=== PATIENT | female | born 1960 | race Caucasian/White ===

== ENCOUNTER 2023-04-12 01:31 | Day surgery (SDC) | payer BC, SELFPAY ==
[2023-04-05 12:33] VITALS: BMI 37.5
--- NOTE | 2023-04-05 12:37 | PC.NURSE ---
Report to the Outpatient Waiting Room, entrance under the green pavilion located off [facility], at time 0715 on date 04/12/23. Planned Procedure Time: 0915. Time changes happen often and if your time is changed the preop area will call you the afternoon before. - You and your visitor will be asked to self-screen and do not enter if you have any COVID symptoms. - A mask is optional within the hospital at this time. Patients may have clear liquids (water, carbonated beverages, clear teas, apple juice) until 3 hours prior to surgery with a maximum of 20 ounces. - No food from midnight until time of surgery Take the following medications with a SIP of water the morning of surgery: NONE DO NOT STOP ANY OF YOUR OTHER PRESCRIPTION MEDICATIONS PRIOR TO SURGERY ?EXCEPT THE FOLLOWING Medications to discontinue per physician: VITAMINS/SUPPLEMENTS Date to take last dose: 04/08/23 Please no make-up, nail swedish, hairspray, perfume, deodorant, or body powder the day of surgery. No jewelry (including any body piercings) or valuables the day of surgery, leave them at home. Please take a shower or bath the night before, or the morning of, surgery with an antibacterial soap. Wear comfortable, loose fitting clothing. - Jewelry must be removed prior to entering the operating room. Rings and piercings that are not removed may be cut off. - The hospital will not accept responsibility for valuables. - Please leave all valuables, including medications, at home the day of surgery. If you are going home after surgery, a licensed commercial driver's license driver must drive you home. - NO public transportation without another adult if you receive anesthesia. - We recommend that an adult stay with you for 24 hours following discharge. - We also recommend that you do not drive, make important decision, drink alcoholic beverages, or take any drugs that were not prescribed by your health care provider for at least 24 hours after your discharge time. Follow any additional instructions given to you from your surgeon. If you or anyone in your household have experienced Covid symptoms in the past week, please notify your surgeon or the nurse liaison at the phone number below for possible testing. Telephone instructions given to PT - CEZAR COOPER and asked if any additional questions and then verbalized understanding. Patient advised to call surgeon office or pre surgery nurse liaison [phone] if any additional questions.
--- NOTE | 2023-04-12 07:30 | WPDHPUPDATE1 ---
History and Physical Update Update Date/Time: 04/12/23 07:30 History and Physical has been reviewed, including an updated exam of the patient. There are NO changes in the patient's condition. Risks, benefits, and alternatives have been discussed and questions answered. Patient agrees to proceed with procedure.
--- NOTE | 2023-04-12 07:31 | P.HP_ITS ---
History of Present Illness History of Present Illness Consent: Risks, benefits, and alternatives have been discussed and questions answered. Patient agrees to proceed with procedure. Chief complaint: thickend endomet Narrative: Alyssia Dinh is a 62 year old female who underwent pelvic ultrasound for pain revealed an incidental finding of thickened endometrium with possibly cystic change. Patient denies vaginal bleeding. It was recommended to proceed with workup including hysteroscopy D&C. Risks of infection, bleeding, perforation, and possible pathology are reviewed. Patient voices understanding and agrees to proceed. Review of Systems Review of Systems: not repeated day of surgery; patient states no changes in status FOR[facility]LY [facility], [facility] Past Medical History Medical History (Updated 04/12/23 @ 07:36 by Flori Landin MD) GERD (gastroesophageal reflux disease) (normal spontaneous vaginal delivery) Surgical History Surgical History (Updated 04/12/23 @ 07:36 by Flori Landin MD) History of cryosurgery cervical 1990 History of D&C for spontaneous in 1989 History of laparoscopy BSO Social History Social History Smoking status: Never smoker Alcohol intake: current Drinks per week: 4 Substance use: never Substance use type: does not use Living arrangements: with family Spiritual care concerns: No Meds Home Medications and Allergies Home Medications Medication Instructions Recorded Confirmed Type calcium carbonate 600 mg calcium 600 mg PO DAILY 04/05/23 04/05/23 History (1,500 mg) tablet (Calcium) cholecalciferol (vitamin D3) 125 125 mcg PO DAILY 04/05/23 04/05/23 History mcg (5,000 unit) tablet (Vitamin D3) multivitamin 1 tablet PO DAILY 04/05/23 04/05/23 History Allergies Allergy/AdvReac Type Severity Reaction Status Date / Time propoxyphene [From Darvon] AdvReac Nausea and Verified 04/05/23 12:32 Vomiting Exam Const: General: healthy appearing and alert Orientation/consciousness: patient oriented x3 Resp: Effort & Inspection: normal respiratory effort GI: GI Palp: Yes Soft to palpation, No Tenderness to palpation present (GI) and No Palpable mass present : External Female Exam: normal external appearance Speculum Exam - Vagina: normal appearance of the vagina and normal vaginal discharge Speculum Exam - Cervix: normal appearance of the cervix Bimanual exam- vagina & uterus: uterine size normal and consistency normal Bimanual Exam- Adnexa, other: normal adnexae and No adnexal tenderness Neuro: General: patient oriented x3 Assessment and Plan Assessment and plan (1) Thickened endometrium: Code(s): R93.89 - Abnormal findings on diagnostic imaging of other specified body structures Status: Acute
--- NOTE | 2023-04-12 07:45 | WPDANESEPPF ---
Anes - Initial Pre Proc Eval Procedure: Operation Date: 04/12/23 09:15 Proposed Procedures p Hysteroscopy Dilation and Curettage - Flori Landin MD Date/Time: 04/12/23 07:45 Surgeon: Flori Landin MD Pre Op Diagnosis: thickend endomet Patient Data Age: 62 Gender: F Height: 1.7 m Weight: 108.9 kg Allergies Allergy/AdvReac Type Severity Reaction Status Date / Time propoxyphene [From Darvon] AdvReac Nausea and Verified 04/12/23 07:50 Vomiting Home Medications Medication Instructions Recorded Confirmed Type calcium carbonate 600 mg calcium 600 mg PO DAILY 04/05/23 04/12/23 History (1,500 mg) tablet (Calcium) cholecalciferol (vitamin D3) 125 125 mcg PO DAILY 04/05/23 04/12/23 History mcg (5,000 unit) tablet (Vitamin D3) multivitamin 1 tablet PO DAILY 04/05/23 04/12/23 History Patient hx anesthesia problems: none Family hx anesthesia problems: none Results Review: All pre-operative results and documents have been reviewed as part of the pre-operative evaluation. [facility] Past Medical History Medical History (Updated 04/12/23 @ 07:46 by Stone Juarez DO) Basal cell carcinoma GERD (gastroesophageal reflux disease) (normal spontaneous vaginal delivery) Surgical History Surgical History (Updated 04/12/23 @ 07:36 by Flori Landin MD) History of cryosurgery cervical 1990 History of D&C for spontaneous in 1989 History of laparoscopy BSO Social History Social History Smoking status: Never smoker Alcohol intake: current Drinks per week: 4 Substance use: never Substance use type: does not use Living arrangements: with family Spiritual care concerns: No Anes - Eval Final PreProcedure Day of Procedure 04/12/23 07:45 Patient weight: obese Heart: regular rate and rhythm Lungs: clear to auscultation Airway: Mallampati scale class II Neurological: alert and oriented Last oral intake: >/= 8 hours ASA classification: II Emergent: no Anesthetic plan: proceed Anesthesia type and monitoring: general GIVS and standard monitoring Results Review: All pre-operative results and documents have been reviewed as part of the pre-operative evaluation. Informed Consent: The patient's anesthetic plan and its attendant risks and benefits were discussed with the patient/family/POA. Questions were solicited and answers provided to the satisfaction of the patient/family/POA.
[2023-04-12] MEDS: ACETAMINOPHEN 500 MG TABLET 1000 MG PO (07:55)
[2023-04-12] MEDS: LACTATED RINGERS 1,000 ML 30 ML IV CONT (08:00)
--- NOTE | 2023-04-12 09:35 | W.PM.PROC2 ---
Procedure Note - Detailed Date of Procedure 04/12/23 Pre-op Diagnosis thickened endometrium Post-op Diagnosis Same Procedure Performed D&C hysteroscopy with resection of polyp Surgeon Flori Landin MD Anesthesia MAC Findings uterus sounds to 7cm; there is a posterior polyp on the right Description of Procedure The patient is taken to the operating room and placed under anesthesia in the dorsal lithotomy position. She was prepped and draped in the usual sterile fashion. Penrose speculum was placed in the vagina and the cervix is grasped on the anterior lip with a tenaculum. The external os is stenotic and the 4/5 dilator is used. The uterus sounded to 7cm. The diagnostic hysteroscope is placed with the above-stated findings the Aveeta resection device is opened and under direct visualization the polyp was removed in its entirety. The hysteroscope was then removed and the sharp curette used to curette the endometrium until a good uterine cry was noted in all areas. All instruments are removed. Sponge, needle, and instrument counts are correct per the OR staff. Patient is awakened from anesthesia and taken to recovery in stable condition. Estimated Blood Loss 5 Drains No Packing No Pathology Yes ( Endometrial shavings and curettings) Complications No immediate complications Condition Stable Disposition PACU
[2023-04-12 09:36] VITALS: BP 105/57; PULSE 64; RESP 14; O2SAT 100
[2023-04-12 10:05] VITALS: BP 115/63; PULSE 58; RESP 14; O2SAT 96
[2023-04-12 10:35] VITALS: BP 114/59; PULSE 51; RESP 14; O2SAT 96
== END 2023-04-12 10:50 | disposition home or self-care (01) ==
PROVIDERS: PCP Physician Assistant; Visit Provider Obstetrics & Gynecology Gynecology
PROC: 0U5B8ZZ Destruction of Endometrium, Via Natural or Artificial Opening Endoscopic (ICD-10-PCS; CPT 58563; principal; 2023-04-12 09:15)
DX: N84.0 Polyp of corpus uteri (principal); E66.9 Obesity, unspecified; Z68.37 Body mass index [BMI] 37.0-37.9, adult
CPT/HCPCS: 58558; 88305; A9270; J2250; J2405; J2704; J3010; J7120

== ENCOUNTER 2025-01-26 08:19 | Outpatient (CLI) | payer BC, SELFPAY ==
--- OUTSIDE RECORDS SUMMARY | 2025-01-26 08:29 | XMS_ITS | Clinical Summary ---
Author Organization [facility] Address [facility] [place] [address] Care Team Providers Care Ironing Worker Name Role Phone ParentEnedina Primary Care Provider [phone] Allergies Active Allergy Reactions Criticality Noted Date Comments Propoxyphene Nausea Only 10/30/2021 Medications Cholecalciferol ([facility] VITAMIN D3) 250 MCG (32551 UT) Cap Take 1 capsule by mouth daily. Active calcium carb-cholecalci ferol 600-400 MG-UNIT Tab tablet 1 tablet daily. Active multi vitamin/mineral s tablet Take 1 tablet by mouth daily. Active ketoconazole (NIZORAL) 2 % cream as needed. 12/16/2021 Active Active Problems Problem Noted Date Diagnosed Date Foraminal stenosis of lumbar region 10/30/2021 Lumbar radiculopathy 10/30/2021 Sacroiliitis 10/30/2021 Other intervertebral disc degeneration, lumbar r egion 10/30/2021 Family History Medical History Relation Comments Hypertension Father Cancer Mother Heart Disease Sister Relation Status Comments Father Mother Sister Social History Tobacco Use Types Packs/Day Years Used Date Smoking Tobacco: Never Smokeless Tobacco: Never Alcohol Use Standard Drinks/Week Comments Yes 0 (1 standard drink = 0.6 oz pur e alcohol) SOCIAL CONSUMPTION Education Answer Date Recorded What is the highest level of school you have completed or the highest degree you have received? Some college, no degree 01/30/2022 Comments No Sex and Gender Information Value Date Recorded Sex Assigned at Not on file Legal Sex Female 6:52 PM CDT Gender Identity Not on file Sexual Orientation Not on file Last Filed Vital Signs Vital Sign Reading Time Taken Comments Blood Pressure 138/78 12/22/2022 8:10 AM CDT Pulse 81 12/22/2022 8:10 AM CDT Temperature 36.9 C (98.5 F) 12/22/2022 7:59 AM CDT Respiratory Rate 23 12/22/2022 8:10 AM CDT Oxygen Saturation 100% 12/22/2022 8:10 AM CDT Inhaled Oxygen Concentration - - Weight 109.8 kg (242 lb) 12/09/2022 2:14 PM ANTIQUE REPAIRER Height 168.9 cm (5' 6.5 ) 12/09/2022 2:14 PM ANTIQUE REPAIRER Body Mass Index 38.47 12/09/2022 2:14 PM ANTIQUE REPAIRER Plan of Treatment Health Maintenance Due Date Last Done Comments Annual Physical 1965 Hepatitis C 1980 Mammogram Screening 2002 Pneumococcal Vaccine: 50+ Years (1 of 1 - PCV) 2012 Zoster Vaccines (1 of 2) 2012 DTaP, Tdap and Td Vaccines ( 2 - Td or Tdap) 08/05/2019 08/05/2009 Cervical Cancer Screening Pa p Smear (Age 30 to 64) Every 3 Years 08/02/2020 08/02/2017 Cervical Cancer Screening Pa p with HPV Testing (Age 30 to 64) Every 5 Years 08/02/2022 08/02/2017 Cervical Cancer Screening wi th HPV 08/02/2022 COVID-19 Vaccine (2023-2 5 season) 2024 02/04/2021, 02/04/2021, 01/14/2021 Colorectal Cancer Screening Colonoscopy (10 Years) 12/22/2032 12/22/2022, 12/22/2022 RSV Immunization or 60+ Years (1 - 1-dose 75+ series) 2037 Meningococcal B Vaccine Aged Out No l onger eligible based on patient's age to complete this topic Meningococcal Vaccine Aged Out No rosaline chad eligible based on patient's age to complete this topic RSV Immunizations Under 20 Months Aged Out No longer eligible b ased on patient's age to complete this topic Procedures Procedure Name Priority Date/Time Associated Diagnosis Comments COLONOSCOPY Routine 12/22/2022 7:30 AM CDT from Last 3 Months or Most Recently Relevant to Health Maintenance Insurance [employer] Care Teams Ironing Worker Relationship Specialty Start Date End Date Parent, PENELOPE Mcconnell [address] [place] [address] PCP - General FAMILY PRACTICE 02/24/22
--- OUTSIDE RECORDS SUMMARY | 2025-01-26 08:29 | XMS_ITS | Patient Health Record ---
Author Organization [facility] Address [address] [facility] [address] [place] [address] Care Team Providers Care [employer] Science Teacher Name Role Phone Enedina Mann Primary Care Provider Gary Denise Unavailable [phone] Allergies Allergen (clinical drug ingredient) Drug/Non Drug Allergy documented on EMR Reaction Allergy Type Onset Date Status Darvon Unknown Drug Allergy Active Reason For Referral No Information Medications Medication SIG (Take, Route, Fr equency, Duration) Notes Start Date End Date Status Meloxicam 7.5 MG TAKE 1 TABLET 2 TIME S DAILY X30 DAYS. BEGIN AFTER STEROID DONE- NO OTHER NSAIDS WHILE ON MEDICATION. Oral for 30 Not-Taki ng Social History Tobacco Use: Social History Observation Description Date Details (start date - stop date) Never Smoker NA - NA Tobacco Use/Smoking Question Answer Notes Are you a nonsmoker Problems Problem Type SNOMED Code ICD Code Onset Dates Problem Status W/U Status Risk Notes Problem [id number] Porokeratosis (Q82.8) Active confirmed Plan Of Treatment No Information Insurance Providers Payer Name Payer Address Payer Phone Subscriber Number Group Number Insured Name Patient Relationship to Insured Coverage Start Date Coverage End Date [facility] [address] [place] [address] [id number] Alyssia Dinh Self - patient is the insured Medical (General) History Surgical History Surgery Date(Month/Year)
--- OUTSIDE RECORDS SUMMARY | 2025-01-26 08:29 | XMS_ITS | Referral Summary ---
Author Organization [facility] [place] Address [address] [place] [address] Care Team Providers Care Linen Room Houseperson Name Role Phone Parent, Enedina NEGRETE Primary Care Provider [phone] Flori Landin MD Unavailable [phone] Encounters Date Type Department Care Team Description 01/11/2025 2:06 PM CDT - 01/11/2025 11:59 PM CDT Hospital Encounter [facility] [address] [place] [phone] Encounter for screening mammogram for malignant neoplasm of breast Discharge Disposition: Discharge to home or self care 12/05/2024 5:08 PM POLLS OR SURVEYS INTERVIEWER - 12/05/2024 11:59 PM POLLS OR SURVEYS INTERVIEWER Hospital Encounter [facility] Ultrasound [address] [place] [phone] Pelvic and perineal pain Discharge Disposition: Discharge to home or self care from Last 3 Months Allergies No known active allergies Social History Tobacco Use Types Packs/Day Years Used Date Smoking Tobacco: Never Assessed Comments No Sex and Gender Information Value Date Recorded Sex Assigned at Not on file Legal Sex Female 2:48 AM POLLS OR SURVEYS INTERVIEWER Gender Identity Not on file Sexual Orientation Not on file Plan of Treatment Not on file Procedures Procedure Name Priority Date/Time Associated Diagnosis Comments SCREENING MAMMOGRAM BILATERAL W SUKHDEV Schedule Routine, Read Routine (OP Routine) 01/11/2025 2:25 PM CDT Encounter for screening mammogram for malignant neoplasm of breast US PELVIS W ENDOVAGINAL Schedule Routine, Read Routine (OP Routine) 12/05/2024 5:52 PM POLLS OR SURVEYS INTERVIEWER Pelvic and perineal pain from Last 3 Months Results * Screening Mammogram Bilateral W Sukhdev (01/11/2025 2:25 PM CDT) Anatomical Region Laterality Modality Breast Bilateral Mammography Impressions 01/11/2025 4:08 PM CDT BI-RADS ATLAS category (overall): 1 - Negative There is no mammographic evidence of malignancy. A 1 year screening mammogram is recommended. The patient has been or will be contacted. We recommend annual screening mammography for women at average risk of breast cancer beginning at age 40, based on guidelines of the [employer] [place] [employer] (ACR Practice Parameter for the Performance of Screening and Diagnostic Mammography) and [place] [employer]. For women with and elevated risk of breast cancer, please refer to the ACR Practice Parameter for specific screening recommendations. The patient will be entered into a reminder system with a target due date of 1 year for her next screening exam. Narrative 01/11/2025 4:08 PM CDT Screening Mammogram Bilateral W Sukhdev: 01/11/25 The study was acquired using full field digital technology and interpreted from soft copy. 2D digital mammographic views, as well as 3D digital tomosynthesis were performed in the CC and MLO projections. This study was resulted using Computer-Aided Detection (CAD). CLINICAL: Encounter for screening mammogram for malignant neoplasm of breast. No relevant medical history has been documented for this patient. History of breast cancer in Mother. COMPARISONS: 01/07/2024 Screening Mammogram Bilateral W Sukhdev 01/04/2023 Screening Mammogram Left W Sukhdev Unilateral Only 11/11/2022 Diagnostic Mammogram Right W Sukhdev 01/02/2022 Screening Mammogram Bilateral W Sukhdev 07/02/2020 Screening Mammogram Bilateral W Sukhdev BREAST TISSUE: There are scattered areas of fibroglandular density. FINDINGS: No suspicious masses, suspicious calcifications, or other suspicious findings are seen within either breast. There has been no suspicious change. us Serena Wadsworth NP IMG MAMMO PROC EDURES Final Result * US Pelvis W Endovaginal (12/05/2024 5:52 PM POLLS OR SURVEYS INTERVIEWER) Anatomical Region Laterality Modality Pelvis N/A Ultrasound 12/09/2024 3:23 PM POLLS OR SURVEYS INTERVIEWER Narrative 12/09/2024 3:25 PM POLLS OR SURVEYS INTERVIEWER EXAM DESCRIPTION: US PELVIS W ENDOVAGINAL REASON FOR STUDY: R10.2 Bilateral oophorectomy. TECHNIQUE: Grayscale ultrasound of the pelvic contents was performed with transabdominal and transvaginal transducer. COMPARISON: 03/04/2023. FINDINGS: UTERUS: The uterus is anteverted. The uterus is slightly heterogeneous in echotexture and measures 7.4 x 4.8 x 3.3 cm. ENDOMETRIUM: The endometrium measures 0.5 cm in thickness. There is an echogenic structure in the endometrial canal of the lower uterine segment, this was not specifically measured by the rehab department manager. On retrospective review this is estimated at 2.4 x 0.6 cm, vascular flow is not seen. Uncertain if this is a true mass such as a endometrial polyp or whether this could be blood products. This was not specifically seen on the prior study although the endometrium is heterogeneous. RIGHT OVARY: The right ovary is not seen, by history surgically absent. LEFT OVARY: The left ovary is not seen, by history surgically absent. PELVIC FLUID: There is no evidence of free fluid in the pelvis. OTHER: No other significant findings. IMPRESSION: Echogenic structure in the endometrial canal of the lower uterine segment 2.4 x 0.6 cm, uncertain if this is a true mass such as a endometrial polyp or whether this could be blood products. May consider a follow-up ultrasound in 6 weeks. Ovaries are not seen, by history surgically absent. THIS IS AN ELECTRONICALLY VERIFIED FINAL REPORT 12/09/2024 3:25 PM - Electronically signed by Brian Davis M.D. CH: GREGG Report ID: [id number] Reading Location: [id number] Procedure Note Brian Davis Jr., MD - 12/09/2024 EXAM DESCRIPTION: US PELVIS W ENDOVAGINAL REASON FOR STUDY: R10.2 Bilateral oophorectomy. TECHNIQUE: Grayscale ultrasound of the pelvic contents was performed with transabdominal and transvaginal transducer. COMPARISON: 03/04/2023. FINDINGS: UTERUS: The uterus is anteverted. The uterus is slightly heterogeneous in echotexture and measures 7.4 x 4.8 x 3.3 cm. ENDOMETRIUM: The endometrium measures 0.5 cm in thickness. There is an echogenic structure in the endometrial canal of the lower uterine segment, this was not specifically measured by the rehab department manager. On retrospective review this is estimated at 2.4 x 0.6 cm, vascular flow is not seen. Uncertain if this is a true mass such as a endometrial polyp or whetherthis could be blood products. This was not specifically seen on the priorstudy although the endometrium is heterogeneous. RIGHT OVARY: The right ovary is not seen, by history surgically absent. LEFT OVARY: The left ovary is not seen, by history surgically absent. PELVIC FLUID: There is no evidence of free fluid in the pelvis. OTHER: No other significant findings. IMPRESSION: Echogenic structure in the endometrial canal of the lower uterine segment2.4 x 0.6 cm, uncertain if this is a true mass such as a endometrial polyp or whether this could be blood products. May consider a follow-up ultrasoundin 6 weeks. Ovaries are not seen, by history surgically absent. THIS IS AN ELECTRONICALLY VERIFIED FINAL REPORT 12/09/2024 3:25 PM - Electronically signed by Brian Davis M.D. CH: GREGG Report ID: [id number] Reading Location: [place] [address] Serena Wadsworth NP [facility] PROCEDU RES Final Result from Last 3 Months Insurance [facility] [employer] Member Subscriber Plan / Payer (Ef fective 2018-Present) Name:Alyssia Dinh Relation to Subscriber:Spouse Name:Herson Dinh Date of :1963 Address: [address] [place] [address] Payer ID:[id number] (NAIC) Group ID:[id number] Type:PRAKASH CUMMINGS Address: [id number] [place] [phone] Care Teams Linen Room Houseperson Relationship Specialty Start Date End Date Enedina Roberts PA PCP - General 09/11/19 Flori Landin MD [address] [phone] Referring Physician Gynecology 01/04/23
--- OUTSIDE RECORDS SUMMARY | 2025-01-26 08:29 | XMS_ITS | Data Portability ---
Author Organization [facility] Neville BARNARDmanoj Alberts Address [address] [facility] [place] [address] Care Team Providers Care Superintendent Maintenance [employer] Name Role Phone EULOGIO COHEN Primary Care Provider Assessment No assessment recorded. Plan of Treatment Reminders Order Date Submit Date Provider Last Modified By Organization Details Last Modified Time Details Appointments ANY 15 2024 03:00P PENELOPE Arteaga Not available Not available Not available Lab CMP, serum or plasma 2023 024 [facility], [address], [address], [place], [address], 07/13/2024 09:44:27 magnesium , serum or plasma 2023 024 [facility], [address], [address], [place], [address], 07/13/2024 09:44:26 BMP, serum or plasma 2023 024 [facility], [address], [address], [place], [address], 05/19/2024 07:24:18 magnesium , serum or plasma 2023 024 [facility], [address], [address], [place], [address], 05/19/2024 07:24:18 BMP, serum or plasma 2023 024 [email or web address] [facility], [address] [facility], [address], [place], [address], 07/13/2024 10:29:59 magnesium , serum or plasma 2023 024 [facility], [address], [address], [place], [address], 07/13/2024 10:29:59 Referral None recorded. Procedures callus removal (PROC) 2023 024 [facility] Not available 08/14/2024 16:25:00 Surgeries None recorded. Imaging None recorded. Medication Orders phentermi ne 37.5 mg capsule 2024 025 [id number], [address] [place], [address], 11/14/2024 15:21:23 phentermi ne 37.5 mg capsule 2023 024 [id number], [address] [place], [address], 08/14/2024 16:29:47 phentermi ne 15 mg capsule 2023 025 [facility] [facility], [address] [place], [address], 11/14/2024 15:00:30 furosemid e 20 mg tablet 2023 024 [facility] [id number] [facility], [address] [place], [address], 07/12/2024 15:27:22 cyclobenz aprine 5 mg tablet 2023 024 [facility] [address] [facility], [address] [place], [address], 08/14/2024 16:00:54 prednison e 20 mg tablet 2023 024 [facility] [address] [facility], [address] [place], [address], 07/12/2024 14:38:29 furosemid e 20 mg tablet 2023 024 [facility] [address], [address] [place] [address], [address], 05/17/2024 16:24:57 hydrochlo rothiazid e 25 mg tablet 2023 024 [facility] [address], [address] [place], [address], 07/12/2024 14:37:16 famotidin e 40 mg tablet 2023 024 [facility] [address], [facility] [place], [address], 08/14/2024 16:08:25 Patient TargetsNo targets recorded. Patient Instructions Encounter Date Encounter Id Patient Instructions Last Modified By Organization Details Last Modified Time 12/30/2023 [id number] [facility]: care instructions Not available 12/30/2023 15:01:21 05/17/2024 [id number] Alyssia, - Thank y jennifer for your visit - Continue your current medications except I am switching you from hydrochlorothiazide to furosemide - monitor sodium intake - wear compression hose if flying - if ear congestion prior to flight, consider using Afrin nasal spray - Use medications as directed - Your results will be available on the portal with any recommendations, or we will call you with them - Return to clinic to follow-up with Enedina in the next 2 months - Call with any concerns jed 9 Not available 05/17/2024 16:27:11 07/12/2024 [id number] A healthy lifest yle: care instructions Not available 07/12/2024 15:27:19 A healthy lifest yle: care instructions Not available 07/12/2024 15:27:19 Reason for Referral None Reported. Results Created Date Observation Date Name Description Value Unit Range Abnormal Flag Note LastModifiedBy Organization Detail LastModifiedTime 05/17/2005/19/2024 MAGNE [facility]UM magnesium 2.3 mg/dL 1.5-2. 5 normal Not Available [address], [address], 05/19/2024 07:24:18 05/17/20 24 05/19/2024 BASIC METAB OLIC PANEL glucose 79 mg/dL 65-99 normal Fasti ng refer ence inter filippo Not Available [address], [address], 05/19/2024 07:24:18 05/17/20 24 05/19/2024 BASIC METAB OLIC PANEL urea nitrogen (BUN) 17 mg/dL 7-25 normal Not Available [address], [address], 05/19/2024 07:24:18 05/17/20 24 05/19/2024 BASIC METAB OLIC PANEL creatinine 0.74 mg/dL 0.50-1 .05 normal Not Available [address], [address], 05/19/2024 07:24:18 05/17/20 24 05/19/2024 BASIC METAB OLIC PANEL eGFR 92 mL/mi n/1.7 3m2 > or = 60 normal Not Available [address], [address], 05/19/2024 07:24:18 05/17/20 24 05/19/2024 BASIC METAB OLIC PANEL BUN/creatini ne ratio SEE NOTE: (calc ) 6-22 Not Repor nora: BUN and Creat inine are withi n refer ence range . Not Available [address], [address], 05/19/2024 07:24:18 05/17/20 24 05/19/2024 BASIC METAB OLIC PANEL sodium 140 mmol/ L 135-14 6 normal Not Available [address], [address], 05/19/2024 07:24:18 05/17/20 24 05/19/2024 BASIC METAB OLIC PANEL potassium 3.9 mmol/ L 3.5-5. 3 normal Not Available [address], [address], 05/19/2024 07:24:18 05/17/20 24 05/19/2024 BASIC METAB OLIC PANEL chloride 102 mmol/ L 98-110 normal Not Available [address], [address], 05/19/2024 07:24:18 05/17/20 24 05/19/2024 BASIC METAB OLIC PANEL carbon dioxide 28 mmol/ L 20-32 normal Not Available [address], [address], 05/19/2024 07:24:18 05/17/20 24 05/19/2024 BASIC METAB OLIC PANEL calcium 9.7 mg/dL 8.6-10 .4 normal Not Available [address], [address], 05/19/2024 07:24:18 07/12/2007/13/2024 MAGNE SIUM magnesium 2.1 mg/dL 1.5-2. 5 normal Not Available [address], [address], 07/13/2024 09:44:26 07/12/20 24 07/13/2024 COMPR EHENS KOBY METAB OLIC PANEL glucose 83 mg/dL 65-99 normal Fasti ng refer ence inter filippo Not Available [address], [address], 07/13/2024 09:44:27 07/12/20 24 07/13/2024 COMPR EHENS KOBY METAB OLIC PANEL urea nitrogen (BUN) 13 mg/dL 7-25 normal Not Available [address], [address], 07/13/2024 09:44:27 07/12/20 24 07/13/2024 COMPR EHENS KOBY METAB OLIC PANEL creatinine 0.78 mg/dL 0.50-1 .05 normal Not Available [address], [address], 07/13/2024 09:44:27 07/12/20 24 07/13/2024 COMPR EHENS KOBY METAB OLIC PANEL eGFR 86 mL/mi n/1.7 3m2 > or = 60 normal Not Available [address], [address], 07/13/2024 09:44:27 07/12/20 24 07/13/2024 COMPR EHENS KOBY METAB OLIC PANEL BUN/creatini ne ratio SEE NOTE: (calc ) 6-22 Not Repor nora: BUN and Creat inine are withi n refer ence range . Not Available [address], [address], 07/13/2024 09:44:27 07/12/20 24 07/13/2024 COMPR EHENS KOBY METAB OLIC PANEL sodium 140 mmol/ L 135-14 6 normal Not Available [address], [address], 07/13/2024 09:44:27 07/12/20 24 07/13/2024 COMPR EHENS KOBY METAB OLIC PANEL potassium 4.4 mmol/ L 3.5-5. 3 normal Not Available [address], [address], 07/13/2024 09:44:27 07/12/20 24 07/13/2024 COMPR EHENS KOBY METAB OLIC PANEL chloride 103 mmol/ L 98-110 normal Not Available [address], [address], 07/13/2024 09:44:27 07/12/20 24 07/13/2024 COMPR EHENS KOBY METAB OLIC PANEL carbon dioxide 27 mmol/ L 20-32 normal Not Available [address], [address], 07/13/2024 09:44:27 07/12/20 24 07/13/2024 COMPR EHENS KOBY METAB OLIC PANEL calcium 9.4 mg/dL 8.6-10 .4 normal Not Available [address], [address], 07/13/2024 09:44:27 07/12/20 24 07/13/2024 COMPR EHENS KOBY METAB OLIC PANEL protein, total 7.2 g/dL 6.1-8. 1 normal Not Available [address], [address], 07/13/2024 09:44:27 07/12/20 24 07/13/2024 COMPR EHENS KOBY METAB OLIC PANEL albumin 4.3 g/dL 3.6-5. 1 normal Not Available [address], [address], 07/13/2024 09:44:27 07/12/20 24 07/13/2024 COMPR EHENS KOBY METAB OLIC PANEL globulin 2.9 g/dL_ (calc ) 1.9-3. 7 normal Not Available [address], [address], 07/13/2024 09:44:27 07/12/20 24 07/13/2024 COMPR EHENS KOBY METAB OLIC PANEL albumin/glob ulin ratio 1.5 (calc ) 1.0-2. 5 normal Not Available [address], [address], 07/13/2024 09:44:27 07/12/20 24 07/13/2024 COMPR EHENS KOBY METAB OLIC PANEL bilirubin, total 0.5 mg/dL 0.2-1. 2 normal Not Available [address] [address] [place], [address], 07/13/2024 09:44:27 07/12/20 24 07/13/2024 COMPR EHENS KOBY METAB OLIC PANEL alkaline phosphatase 90 U/L 37-153 normal Not Available [address] [address] [place], [address], 07/13/2024 09:44:27 07/12/20 24 07/13/2024 COMPR EHENS KOBY METAB OLIC PANEL AST 28 U/L 10-35 normal Not Available [address] [address] [place], [address], 07/13/2024 09:44:27 07/12/20 24 07/13/2024 COMPR EHENS KOBY METAB OLIC PANEL ALT 46 U/L 6-29 high Not Available [address] [address] , [place], [address], 07/13/2024 09:44:27 01/11/20 24 01/11/2024 DEXA No observ ation record ed. [address], [address], 01/14/2024 16:16:17 01/12/20 25 01/11/2025 MAMMO , scree brandon, tomos ynthe sis, bilat eral No observ ation record ed. [address], [address], 01/19/2025 14:32:19 Result Notes None recorded. 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 Active 2023 PENELOPE Liao Attn: Accounting ,[address] [facility], [place], [address] , [place] - [facility] 4 14:46:34 Spasmodi c torticol lis 04261715 Active 2023 Simon Bell MD Attn: Accounting ,[address] [facility], [place], [address] , [place] [facility] 4 16:18:52 Bilatera l lower leg edema 417709814 Active 2023 Simon Bell MD Attn: Accounting ,[address] [facility], [place], [address] , [facility] - [facility] 4 16:20:59 Cramp in lower limb 202161108 Active 2023 Simon Bell MD Attn: Accounting ,[address] [facility], [place], [address] , [facility] - [facility] 4 16:32:18 Acute upper respirat ory infectio n of multiple sites Completed 201412/29/2014 Location : None;Sev erity: Moderate ;Progres s: Stable;A dded By: Mikki Chavira;Add to Current Problems : YES Not Available [facility] 7 08:21:13 Pain in limb [id number] Completed 201212/10/2016 Location : None;Sev erity: Moderate ;Progres s: Stable;A dded By: Emerald Ley i;A dd to Current Problems : NO PENELOPE Liao Attn: Accounting ,[address] [facility], [place], [address] , [place] - [facility] 7 16:26:06 Heartbur n [id number] Completed 201210/12/2013 Location : None;Sev erity: Moderate ;Progres s: Stable;A dded By: Emerald Ley i;A dd to Current Problems : NO Not Available [facility] 7 08:21:13 Low back pain 940587993 Active 2012 Location : None;Sev erity: Moderate ;Progres s: Stable;A dded By: Emerald Ley i;Shanda dd to Current Problems : NO Not Available [facility] 7 08:21:13 Shoulder joint pain 057768589 Completed 201511/16/2015 Location : None;Sev erity: Moderate ;Progres s: Stable;A dded By: Emerald Ley i;Shanda dd to Current Problems : YES Not Available [facility] 7 08:21:13 Hip pain 89183585 Active 2015 Location : None;Sev erity: Moderate ;Progres s: Stable;A dded By: Emerald Ley i;Shanda dd to Current Problems : NO Not Available [facility] 7 08:21:13 Gastroes ophageal reflux disease 916551199 Active 2014 Location : None;Sev erity: Moderate ;Progres s: Stable;A dded By: Emerald Ley i;Shanda dd to Current Problems : YES Not Available [facility] 7 08:21:13 Problem Notes None recorded. Procedures Surgical History Date Name Laterality Status Provider Name and Address Organization Details Recorded Time 11/25/19 24 Date of Last Pap Smear completed Dora Peña [place] [facility] 12/30/2023 14:31:04 01/06/20 23 Date of Last Mammogram completed Dora Peña [place] - [facility] 12/30/2023 14:30:28 08/17/20 19 Joint Injection completed PENELOPE Liao Attn: Accounting,[address] [place], [address], [place] [facility] 08/20/2019 22:14:06 Dilation and Curettage completed Sophie Flores [place] [facility] 12/10/2016 16:12:49 oophorectomy completed PENELOPE Liao Attn: Accounting,[address] [place], [address], [place] [facility] 10/18/2019 14:27:09 Imaging Results Imaging Date Name Status LastModified by [facility] Details LastModified Time 01/11/2024 DEXA completed [address] [place], [address], 01/14/2024 16:16:17 01/11/2025 MAMMO, screening, tomosynthesis, bilateral completed [facility] [address] [place], [address], 01/19/2025 14:32:19 Procedure Notes None recorded. Medical Equipment None Reported. Allergies Allergen ID Allergen Name Allergen Category Reaction Reaction Severity Criticality Documentation Date Start Date Code Code System Note Provider Name and Address Organization Details Recorded Time 31016 propoxyph zelda napsylate medicatio n Not available Not available Not available 10/14/20162012 8786 RxNorm Sever ity: Moder ate; Comme nt: Aller gy Type: Adver se React ion; Not Available Not Available Not Available Medications Name Sig Start Date Stop Date Status Note LastModified by Organization Details LastModified Time promethazin e-DM 6.25 mg-15 mg/5 mL oral syrup 01/17 completed Not Available Not Available Not Available neomycin-po lymyxin-hyd rocort 3.5 mg/mL-10,00 0 unit/mL-1 % ear solution INSTILL 4 DROPS INTO AFFECTED EAR(S) BY OTIC ROUTE 3 TIMES PER DAY 04/16 completed Not Available Not Available Not Available fluconazole 150 mg tablet Take 1 tablet every week by oral route with meals for 14 days. 01/23 completed Not Available Not Available Not Available valacyclovi r 1 gram tablet Take 1 tablet every 12 hours by oral route for 10 days. 04/16 completed Not Available Not Available Not Available ranitidine 300 mg tablet Take 1 tablet every day by oral route. 04/16 completed Not Available Not Available Not Available ondansetron HCl 4 mg tablet 05/17 completed Not Available Not Available Not Available famotidine 40 mg tablet TAKE 1 TABLET BY MOUTH EVERY DAY 08/14 completed Not Available Not Available Not Available prednisone 20 mg tablet 2 tabs po qam x 2 days, then 1 tab po qam x 4 days 08/07/ 2024 10/02 /2024 completed Not Available Not Available Not Available phentermine 15 mg capsule TAKE 1 CAPSULE BY MOUTH EVERY DAY IN THE MORNING 11/14 completed Not Available Not Available Not Available sulfamethox azole 800 mg-trimetho prim 160 mg tablet Take 1 tablet every 12 hours by oral route for 5 days. 04/16 completed Not Available Not Available Not Available Kenalog 40 mg/mL suspension for injection Take 1.5 mL by injection route. 07/24 completed Not Available Not Available Not Available meloxicam 7.5 mg tablet TAKE 1 TABLET 2 TIMES DAILY X30 DAYS. BEGIN AFTER STEROID DONE- NO OTHER NSAIDS WHILE ON MEDICATIO N. 05/18 completed Not Available Not Available Not Available oxycodone-a cetaminophe n 5 mg-325 mg tablet 05/17 completed Not Available Not Available Not Available terbinafine HCl 250 mg tablet PLEASE SEE ATTACHED FOR DETAILED DIRECTION S 05/18 completed Not Available Not Available Not Available amoxicillin 875 mg tablet Take 1 tablet every 12 hours by oral route. 08/17 completed Not Available Not Available Not Available oseltamivir 75 mg capsule Take 1 capsule twice a day by oral route with meals for 5 days. 01/19 completed Not Available Not Available Not Available clotrimazol e-betametha sone 1 %-0.05 % topical cream APPLY TO THE AFFECTED AND SURROUNDI NG AREAS OF SKIN BY TOPICAL ROUTE 2 TIMES PER DAY IN THE MORNING AND EVENING FOR 2 WEEKS 09/28 completed Not Available Not Available Not Available omeprazole 20 mg capsule,del ayed release Take 1 by mouth daily 01/20 completed Not Available Not Available Not Available cephalexin 500 mg tablet Take 1 tablet 3 times a day by oral route for 7 days. 05/18 completed Not Available Not Available Not Available hydrochloro thiazide 25 mg tablet TAKE 1 TABLET BY MOUTH EVERY DAY 07/12 completed Not Available Not Available Not Available furosemide 20 mg tablet TAKE 1 TABLET BY MOUTH TWICE A DAY FOR 30 DAYS active Not Available Not Available No t Available methylpredn isolone 4 mg tablets in a dose pack TAKE 1 TABLET (4 MG TOTAL) BY MOUTH SEE ADMINISTR KEY INSTRUCTI ONS. FOLLOW PACKAGE DIRECTION S 05/18 completed Not Available Not Available Not Available ketoconazol e 2 % topical cream APPLY TO AFFECTED AREA TOPICALLY ONCE DAILY FOR 6 WEEKS 12/29 completed Not Available Not Available Not Available phentermine 37.5 mg capsule TAKE 1 CAPSULE BY MOUTH EVERY DAY IN THE MORNING active Not Available Not Available No t Available naproxen 500 mg tablet Take 1 tablet twice a day by oral route as needed. 04/16 completed Not Available Not Available Not Available amoxicillin 875 mg-potassiu m clavulanate 125 mg tablet 05/17 completed Not Available Not Available Not Available azithromyci n 500 mg tablet Take 1 tablet every day by oral route with meals for 3 days. 01/23 completed Not Available Not Available Not Available cyclobenzap rine 5 mg tablet 1-2 tabs by mouth 3 times daily as needed for muscle pain/spas m 08/14 completed Not Available Not Available Not Available chlorhexidi ne gluconate 0.12 % mouthwash 05/17 completed Not Available Not Available Not Available Vitals Date Recorded Body height Body mass index (BMI) Body weight Oxygen saturation Oxygen saturation in Arterial blood by Pulse oximetry Heart rate Body temperature Provider Name and Address Organization Details Last Updated DateTime 4 167.64 cm 39.8 kg/m2 729820. 82 g 96 % 96 % 78 /min 98.1 [degF] Dora Peña MA [facility] 14:27:16 Date Recorded Systolic blood pressure Diastolic blood pressure Provider Name and Address Organization Details Last Updated DateTime 12/30/2023 134 mm[Hg] 84 mm[Hg] PENELOPE Liao Attn: Accounting,[address] [place], [address], [facility] 12/30/2023 14:54:06 Date Recorded Body height Body mass index (BMI) Body weight Oxygen saturation Oxygen saturation in Arterial blood by Pulse oximetry Heart rate Body temperature Systolic blood pressure Diastolic blood pressure Provider Name and Address Organization Details Last Updated DateTime 4 167.64 cm 39.7 kg/m2 905814. 12 g 96 % 96 % 81 /min 97.5 [degF] 148 mm[Hg] 81 mm[Hg] Dora Peña MA [facility] 4 15:30:11 Date Recorded Body height Body mass index (BMI) Body weight Body temperature Oxygen saturation Oxygen saturation in Arterial blood by Pulse oximetry Heart rate Systolic blood pressure Diastolic blood pressure Provider Name and Address Organization Details Last Updated DateTime 4 167.64 cm 40.2 kg/m2 847251. 9 g 97.8 [degF] 96 % 96 % 75 /min 126 mm[Hg] 84 mm[Hg] Amaya Loza MA [facility] 4 14:41:25 Date Recorded Body height Body mass index (BMI) Body weight Body temperature Oxygen saturation Oxygen saturation in Arterial blood by Pulse oximetry Heart rate Systolic blood pressure Diastolic blood pressure Provider Name and Address Organization Details Last Updated DateTime 4 167.64 cm 39.5 kg/m2 205272. 13 g 97.2 [degF] 97 % 97 % 83 /min 129 mm[Hg] 84 mm[Hg] Krysta Alexis MA [facility] 4 15:04:10 Date Recorded Body height Body mass index (BMI) Body weight Oxygen saturation Oxygen saturation in Arterial blood by Pulse oximetry Heart rate Body temperature Provider Name and Address Organization Details Last Updated DateTime 5 167.64 cm 37.5 kg/m2 783352. 83 g 96 % 96 % 95 /min 98.2 [degF] Dora Peña MA [facility] 5 14:58:36 Date Recorded Systolic blood pressure Diastolic blood pressure Provider Name and Address Organization Details Last Updated DateTime 11/14/2024 126 mm[Hg] 89 mm[Hg] PENELOPE Liao Attn: Accounting,[address] [place], [address], [facility] 11/14/2024 15:19:58 Social History Question Answer Notes LastModified by Organizat ion Details LastModified Time Tobacco Smoking Status Never Smoker Sophie Flores MA null, [facility] 12/10/2016 16:18:03 Do You Have An Advance Directive? No [email or web address] Information n ot available 04/16/2021 What Is Your Level Of Alcohol Consumption? Moderate Information not available 04/16/2021 Are You Blind Or Do You Have Difficulty Seeing? No [email or web address] Information n ot available 04/16/2021 What Is Your Level Of Caffeine Consumption? Moderate [email or web address] Information not available 04/16/2021 In The 14 Days Before Symptom Onset, Have You Had Close Contact With A Laboratory-confirm ed COVID-19 While That Case Was Ill? No [email or web address] Information n ot available 04/16/2021 In The 14 Days Before Symptom Onset, Have You Had Close Contact With A Person Who Is Under Investigation For COVID-19 While That Person Was Ill? No [email or web address] Information not available 04/16/2021 Have You Been To An Area Known To Be High Risk For COVID-19? No Information not available 04/16/2021 Are You Currently Employed? Yes [email or web address] Information not available 04/16/2021 Are You Deaf Or Do You Have Serious Difficulty Hearing? No [email or web address] Information not available 04/16/2021 What Type Of Diet Are You Following? REGULAR Information n ot available 04/16/2021 What Was The Date Of Your Most Recent Tobacco Screening? 11/14/2024 Information not available 11/14/2024 What Is Your Relationship Status? [email or web address] Information not available 04/16/2021 Do You Use Your Seat Belt Or Car Seat Routinely? Yes [email or web address] Information not available 04/16/2021 Do You Have Smoke And Carbon Monoxide Detectors In Your Home? Yes [email or web address] Information not available 04/16/2021 Are You Passively Exposed To Smoke? No [email or web address] Information no t available 04/16/2021 Do You Feel Stressed (tense, Restless, Nervous, Or Anxious, Or Unable To Sleep At Night)? [id number] [email or web address] Information not available 04/16/2021 Do You Use Any Illicit Or Recreational Drugs? No [email or web address] Information not available 04/16/2021 Sex: Female Functional Status Question Answer Note LastModified by Organizat ion Details LastModified Time Are you able to care for yourself? Yes [email or web address] Information not available 04/16/2021 What is your exercise level? Occasional Information not available 12/30/2023 Mental Status None recorded. Family History Relationship Description Onset Age of this Age Resolved Age Notes LastModified by Organization Details LastModified Time Mother Malignant tumor of breast [email or web address] Not available 2016 16:13:09 Mother Malignant tumor of ovary [email or web address] Not available 2016 16:13:57 Father Diabetes mellitus [email or web address] Not available 2016 16:13:23 Father Hypertensive disorder [email or web address] Not available 2016 16:13:40 Medical History Condition Response Acid Reflux (GERD) Y Gynecological History Statement/Question Response Menses Monthly N Date of Last Pap Smear 11/25/2023 Date of Last Mammogram 01/05/2023 Obstetrics History GPAL:G 0 P 0 0 0 0 Immunizations Vaccine Type Date Status Note Provider Nam e and Address Organization Details Recorded Time Influenza, split virus, quadrivalent, preservative 9 completed Not Available [facility] 12/23/2022 21:42:19 COVID-19, mRNA, LNP-S, PF, 30 mcg/0.3 mL dose 1 completed PENELOPE Liao Attn: Accounting,[address] [place], [address], [place] [facility] 12/30/2023 15:08:13 COVID-19, mRNA, LNP-S, PF, 30 mcg/0.3 mL dose 2 completed PENELOPE Liao Attn: Accounting,[address] [place], [address], [place] [facility] 12/30/2023 15:08:13 COVID-19, mRNA, LNP-S, PF, 30 mcg/0.3 mL dose 1 completed PENELOPE Liao Attn: Accounting,[address] [place], [address], [place] [facility] 12/30/2023 15:08:13 Tdap 9 completed Not Available [facility] 12/23/2022 21:42:19 Past Encounters Encounter ID Performer Location Encounter Start Date Encounter Closed Date Diagnosis/Indication Diagnosis SNOMED-CT Code Diagnosis ICD10 Code Diagnosis Note [id number] PENELOPE Liao [facility] [address] [place] [address] 12/10/2016 15:58:16 12/11/2016 11:08:52 Nonulcer dyspepsia 1143816 K30 Pain in left arm 5329452 00 M79.568 [id number] Crsitela Payton [facility] [address] [place] [address] 12/31/2016 16:04:10 01/02/2017 12:52:48 Pain in left knee [id number] 22283 M25.562 if patient calls back get knee Xray Elevated blood-pressure reading without diagnosis of hypertension 882839956 R03.0 [id number] Cristela Payton [facility] [address] [place] [address] 01/20/2017 16:08:58 01/21/2017 10:03:12 Solar erythema 515053087 L57.8 Edema of foot 434513299 R60.0 [id number] Eulogio Cohen MD [facility] [address] [place] [address] 09/28/2017 14:00:41 09/28/2017 17:14:10 Malaise and fatigue 806031112 R53.81 Influenza 2457617 J11.1 [id number] Eulogio Cohen MD [facility] [address] [place] [address] 01/19/2018 16:45:58 01/20/2018 16:12:45 Nonulcer dyspepsia 8798230 K30 Tinea pedis 5342946 B35. 3 Inguinal pain 029029355 R10.2 [id number] Eulogio Cohen MD [facility] [address] [place] [address] 10/25/2018 16:09:03 10/26/2018 09:09:12 Acute bronchitis 85025785 J20.9 [id number] PENELOPE Liao [facility] [address] [place] [address] 01/23/2019 14:23:41 01/24/2019 08:51:54 Acute tonsillitis 07784391 J03.90 CONTAGION discussed, may take tylenol and or aleve prn, fluids, rest, no work today or tomorrow [id number] PENELOPE Liao [facility] [address] [place] [address] 08/17/2019 11:03:06 08/18/2019 10:02:25 Trochanteric bursitis of right hip 5585970796 68526 M70.61 [id number] PENELOPE Liao [facility] [address] [place] [address] 09/11/2019 14:19:05 09/12/2019 08:41:04 Hip pain 54026839 M25.[address] Julio, had similar symptoms years ago diagnosed as sciatica, and had injections and did very well for several years Sciatica 39543764 M54.31 [id number] PENELOPE Liao [facility] [address] [place] [address] 10/18/2019 13:47:11 10/19/2019 11:52:05 Tendinitis of right shoulder 5391862353 285793 M75.91 ROM exercises discussed and PT if no better, she will call for order Screening for malignant neoplasm of breast 836640398 Z12.39 has it yearly with her urogynaecologist, mom with breast cancer [id number] PENELOPE Liao [facility] [address] [place] [address] 01/18/2020 10:18:30 01/18/2020 17:18:23 Otalgia of left ear 1015361909 383178 H92.02 due to tenderness to touch, I will empiricall y treat for external otitis. Keep qtips out of her ear and keep as dry as possible Scalp tenderness 5912696 4 R51 We discussed at length the signs of shingles. She will be on the lookout for a rash on the distributi on of her scalp sensitivit y, and if occurs, she will take a picture for her chart and will start the antiviral immediatel y. [id number] Kori Orozco LPN [facility] [address] [place] [address] 03/03/2021 15:32:09 03/04/2021 10:11:39 Increased frequency of urination 496694599 R35.0 Dysuria-fr equency syndrome 4215487 R35.0 [id number] PENELOPE Liao [facility] [address] [facility] [address] [place] [address] 04/16/2021 10:28:38 04/22/2021 16:56:36 Hyperlipidemia screening 411859907 Z13.220 Family his tory of diabetes mellitus 677164158 Z83.3 Trochanter ic bursitis of left hip 8984088516 01453 M70.62 if no better with injection, will get xrays done Hip pain 93556516 M25.[address] Julio, had similar symptoms years ago diagnosed as sciatica, and had injections and did very well for several years [id number] PENELOPE Liao [facility] [address] [facility] [address] [facility] [place] [address] 07/24/2021 10:17:47 07/25/2021 12:58:16 Sebaceous cyst of skin 028681891 L72.3 will try prn antibiotic for recurrence and if no help or recurrence frequency continues, she will call for an excision. Left side sciatica 78986 98176 73127 M54.32 recurrent with know degenerati ve disc issues, treated 10 years ago by interventi onal epidural injection per dr. Julio. Low back pain 169092104 M54.[address] Julio pending MRI, she is loyda Nelson on of lumbar intervertebral disc 53630483 M51.36 [id number] PENELOPE Liao [facility] [address] [facility] [address] [place] [address] 05/18/2022 14:38:42 05/19/2022 10:44:07 Vasculitis of the skin 86472408 L95.9 will add prednisone pending resolution of rash like before and labs. Had milder case just the left in March and resolved spontaneou sly in 3 days. Will be in touch when lab results are in Dependent edema 43721944 4 R60.0 salt avoidance, keep legs elevated and compressed , heat avoidance, await labs. [id number] PENELOPE Liao [facility] [address] [facility] [address] [place] [address] 12/30/2023 14:16:52 12/31/2023 13:53:12 Adult health examination 393395862 Z00.[address] Landin urogynaecologist for paps, having mammogram next Tye, bone density upcoming. Declines tetanus, states had one before her 8 year old granddaugh santi was born, no record. Morbid obesity 258149800 E66.01 lowfat diet, weight loss stressed, needs to walk more, move more. Hypertriglyceridemia 302 950858 E78.1 lowfat diet, weight loss stressed, limit alcohol and tylenol. Liver enzy mes level above reference range 071107116 R74.01 lowfat diet, weight loss stressed, limit alcohol and tylenol. Gastroesop hageal reflux disease without esophagitis 184224313 K21.9 had EGD with zero issues. avoid acidic foods, greasy and fried foods, caffeine, late meals, and elevate the head of the bed, start nightly famotidine and TUMS for breakthrou gh symptoms, and call if no better. Weight loss stressed Peripheral edema 9486374 00 R60.9 salt avoidance, support hose, MOVE MORE, elevate legs in the evening, will start daily or prn hctz. Labs reviewed, normal renal function. No SOB or CP. 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.3 handoutche ck [facility]slow [facility]- eroidal anti-infla mmatory drugsoral corticoste roids, skeletal muscle relaxant if needed Bilateral lower leg edema 412872014 R60.0 hydrochlor othiazide seems inadequate getting toe cramps Long-term drug therapy 016308861 Z79.899 check routine labs for toe cramping Cramp in lower limb 9729 48368 R25.2 on diureticch hansa lytes, incl magnesiumt rial use of over-the-c ounter magnesium [id number] PENELOPE Liao [facility] [address] [place] [address] 07/12/2024 14:14:21 07/19/2024 16:14:59 Cramp in lower limb 707866789 R25.2 taking magnesium and really helping. Bilateral lower leg edema 682752006 R60.0 No signs or symptoms of CHF, renal function normal, likely from her obesity and venous insufficie ncy. zaire is not getting full relief at all, will allow for 2 per day prn, but support hose really needed on the regular, she understand s. thyroid normal in Nov per urogynaecologist, lipids show >300 trigs. Elevated LFT. Not fasting today, discussed need for weight loss, no alcohol, no tylenol. Varicose v eins of lower extremity 85366276 I83.93 I83.893 SUPPORT HOSE DAILY. Hypertriglyceridemia 302 674411 E78.1 lowfat diet, weight loss stressed, limit alcohol and tylenol. Start daily fishoil/om ega-3 will check fasting lipids with next blood draw. Morbid obesity 999628278 E66.01 lowfat diet, weight loss stressed, needs to walk more, move more. Discussed options for augmented weight loss, and she'd like to try phentermin e, will f/u in one month to see if increased dose indicated and vitals normal [id number] PENELPOE Liao [facility] [address] [place] [address] 08/14/2024 14:45:49 08/15/2024 11:30:14 Morbid obesity 188667222 E66.01 low fat diet, weight loss stressed, needs to walk more, move more. Discussed options for augmented weight loss, and she'd like to continue phentermin e, will increase dose and will f/u in three months, she will call with any issues in the mean time. Foot callus 952722592 L8 4 total relief of previous symptoms, she will use lotion to keep skin soft, and use safe callus shaver in the future [id number] PENELOPE Liao [facility] [address] [place] [address] 11/14/2024 14:44:55 11/15/2024 09:54:58 Morbid obesity 792753282 E66.01 low fat diet, weight loss stressed, needs to walk more, move more. Discussed options for augmented weight loss, and she'd like to continue phentermin e, will stay on increase dose and will f/u in three months, she will call with any issues in the mean time. Will be stopping in 3 months. 4 months down 17 pounds, which is 6.8% total. Elevated blood-pressure reading without diagnosis of hypertension 077227251 R03.0 borderline today, hopefully with continued weight loss, this will continue to improve. Must move more, with spring, set goals for walking Health Concerns Section Related Observation LastModified by Organization Detai ls LastModified Time None Recorded Concern Status LastModified by Organization Details LastModified Time None Recorded Advance Directives Directive N: Payers Encounter Date Sequence Insurance Name Policy Number Policy Bah Covered Member ID Bah Member ID Guarantor Name 12/30/2023 1 [place] [address] Fabrizio [id number] Alyssiagina Dinh 05/17/2024 1 [place] Karime Jimenez Fabrizio [id number] Alyssia Dinh 07/12/2024 1 [place] [employer] [place] Karime Jimenez Fabrizio [id number] Alyssia Dinh 08/14/2024 1 [place] Karime Herson Jimenez Fabrizio [id number] Alyssia Dinh 11/14/2024 1 [employer] [employer] [place] [place] Karime Jimenez Fabrizio [id number] Alyssiagina Dinh Notes Date Note Type Note Provider Name and Address Organization Details Recorded Time 05/17/2024 text/html ACUTE VISIT/SUBJECTIVE: Alyssia presents with a 3-4 day history of pain to the left posterolateral- worse symptoms this a.m. - pain with swallow- no fevers or chills- no headache- no ear pain- no dental pain- no ent surgeries Pertinent past medical, surgical, family and social history reviewed and updated as needed. Pertinent positives and negatives as noted in HPI. All other systems reviewed and negative. - Unemployment Benefits Claims Taker/Nursing note reviewed. - Simon Bell MD Attn: Accounting, [address] [place], [address], [facility] 05/17/2024 16:33:32 07/12/2024 text/html EdemaReported bypatient.Quality:leg s do not swell equally;symptoms worse in the evening; rt leg swells more then left Severity:mild Duration:intermittent Onset/Timing:on going Context:prior history of edema Modifying Factors:RX medication Associated Symptoms:no shortness of breath; no shortness of breath during exertion; no nocturia; no swelling in lower legs; no significant weight gain; no cough; no orthopnea; no paroxysmal nocturnal dyspnea (PND); no chest pain; no palpitationsNotes:was switched from HCTZ to lasix per dr. lee last visit, not sure if it's made much difference. PENELOPE Liao Attn: Accounting, [address] [place], [address], [facility] 07/13/2024 11:26:55 08/14/2024 text/html ObesityReported bypatient.Context:no inhaled steroids; no oral steroids Associated Symptoms:no depression; no chronic illness; no Prader-Willi Syndrome; no hypothyroidism Co-morbidities:no new co-morbidities since last visit Lifestyle changes:few constitutional symptoms related to diagnosis; no changes in living situation; motivated to continue lifestyle changes;not losing weight(doesnt feel like she is not losing weight);not exercising more Nutrition:doesn't follow any kind of diet plan Physical Activity:no exercise Medication Education:understands potential side effects; understands administration; understands role of diet as primary therapyNotes:feeling great, no insomnia, no jitters.Also has a sore spot on her foot, feels like a cut. PENELOPE Liao Attn: Accounting, [address] [place], [address], [facility] 08/14/2024 22:58:46 11/14/2024 text/html ObesityReported bypatient.Context:no inhaled steroids; no oral steroids Associated Symptoms:no depression; no chronic illness; no Prader-Willi Syndrome; no hypothyroidism Co-morbidities:no new co-morbidities since last visit Lifestyle changes:no changes in living situation; motivated to continue lifestyle changes; losing weight (13 lbs); exercising more (trying) Nutrition:eats mostly healthy diet; eats low fat diet; eats low carbohydrate diet Physical Activity:reported frequency of moderate level of physical activity per week: 1-2 days Medication Education:understands potential side effects; understands administration; understands role of diet as primary therapyNotes:4 months down 17 pounds, which is 6.8% total. Zero insomnia or tachycardia PENELOPE Liao Attn: Accounting[address] [facility], [place], [address], [facility] 11/14/2024 15:23:02 OBGyn Episode No OBEpisode recorded.
--- OUTSIDE RECORDS SUMMARY | 2025-01-26 08:30 | XMS_ITS | Clinical Summary ---
Author Organization [facility] [place] Address [address] [place] [address] Care Team Providers Care Non Destructive Testing Inspector Name Role Phone Parent, Enedina NEGRETE Primary Care Provider [phone] Flori Landin MD Unavailable [phone] Allergies No known active allergies Encounters Date Type Department Care Team Description 01/11/2025 2:06 PM CDT - 01/11/2025 11:59 PM CDT Hospital Encounter [facility] Breast Imaging [address] [place] [phone] Encounter for screening mammogram for malignant neoplasm of breast Discharge Disposition: Discharge to home or self care 12/05/2024 5:08 PM CLUTCH MECHANIC - 12/05/2024 11:59 PM CLUTCH MECHANIC Hospital Encounter [facility] Ultrasound [address] [place] [address] Pelvic and perineal pain Discharge Disposition: Discharge to home or self care from Last 3 Months Family History Medical History Relation Name Comments Breast cancer Mother Relation Name Status Comments Mother Social History Tobacco Use Types Packs/Day Years Used Date Smoking Tobacco: Never Assessed Comments No Sex and Gender Information Value Date Recorded Sex Assigned at Not on file Legal Sex Female 2:48 AM CLUTCH MECHANIC Gender Identity Not on file Sexual Orientation Not on file Obstetrics History Para Term AB IAB SAB Ectopic Multiple Livin g Live Births 1 1 1 Date Outcome GA Total Labor Labor/2nd/3rd Weight Sex Type Anes PTL Bridget A1 A5 Name Clin Term Plan of Treatment Health Maintenance Due Date Last Done Comments Cervical Cancer Screening 1962 Colon Cancer Screening-Colonoscopy 1962 Depression Screening 1962 Hepatitis C Screening 1962 Hepatitis B Screening 1980 Regular Well Visit/Exam 18-64 1980 Zoster Vaccine (1 of 2) 2012 DTaP/Tdap/Td Vaccine (2 - Td or Tdap) 08/05/2019 08/05/2009 Covid-19 Vaccine ( season) 2024 11/04/2021, 02/04/2021, 02/04/2021, Additional history exists Influenza Vaccine (Season Ended) 2025 08/28/2019 Breast Cancer Screening-Mammogram 01/11/2026 01/11/2025, 01/07/2024, 01/04/2023, Additional history exists Pneumococcal vaccine <65 Aged Out No longer eligible based on patient's age to complete this topic Procedures Procedure Name Priority Date/Time Associated Diagnosis Comments SCREENING MAMMOGRAM BILATERAL W SUKHDEV Schedule Routine, Read Routine (OP Routine) 01/11/2025 2:25 PM CDT Encounter for screening mammogram for malignant neoplasm of breast US PELVIS W ENDOVAGINAL Schedule Routine, Read Routine (OP Routine) 12/05/2024 5:52 PM CLUTCH MECHANIC Pelvic and perineal pain from Last 3 [...] age 42, based on guidelines of the [employer] (ACR Practice Parameter for the Performance of Screening and Diagnostic Mammography) and [employer]. For women [...] breast. There has been no suspicious change. Serena Wadsworth NP [facility] MAMMO PROC EDURES Final Result * US Pelvis W Endovaginal (12/05/2024 5:52 PM CLUTCH MECHANIC) Anatomical Region Laterality Modality Pelvis N/A Ultrasound 12/09/2024 3:23 PM CLUTCH MECHANIC Narrative 12/09/2024 3:25 PM CLUTCH MECHANIC EXAM DESCRIPTION: US PELVIS W ENDOVAGINAL REASON [...] this was not specifically measured by the building construction estimator. On retrospective review this is estimated at [...] Brian Davis M.D. CH: GREGG Report ID: [id number] Reading Location: [id number] Procedure Note Brian Davis Jr., MD - [...] this was not specifically measured by the building construction estimator. On retrospective review this is estimated at [...] Electronically signed by Brian Davis M.D. CH: Report ID: [id number] Reading Location: [id number] us Serena Wadsworth OFFICE ADMIN IMG US PROCEDU RES Final Result from Last 3 Months Insurance [facility] FEDERAL Member Subscriber Plan / Payer (Ef fective 2018-Present) Name:Alyssia Dinh Relation to Subscriber:Spouse Name:Fabrizio Herson Jimenez Date of :1963 Address: [address] [place] [address] Payer ID:[id number] (NAIC) Group ID:[id number] Type:[facility] Address: [facility] [id number] [id number] Care Teams Non Destructive Testing Inspector Relationship Specialty Start Date End Date Enedina Roberts PA PCP - General 09/11/19 Flori Landin MD [address] [address] Referring Physician Gynecology 01/04/23
[2025-01-26 09:08] LABS: Anion Gap 9 mmol/L (4-12); Blood Urea Nitrogen 19 mg/dL (7-17); Calcium 9.6 mg/dL (8.4-10.2); Carbon Dioxide 26 mmol/L (22-30); Chloride 106 mmol/L (98-107); Estimated Glomerular Filt Rate > 60; Glucose 107 mg/dL (65-110); Potassium 4.4 mmol/L (3.4-5.0); Sodium 141 mmol/L (137-145)
== END 2025-01-26 08:20 | disposition home or self-care (01) ==
LOC: ANHSURGERY 08:25
PROVIDERS: Anesthesiology; PCP Physician Assistant; Visit Provider Obstetrics & Gynecology Gynecology
DX: E87.6 Hypokalemia (principal)
CPT/HCPCS: 36415; 80048

== ENCOUNTER 2025-02-05 00:47 | Day surgery (SDC) | payer BC, SELFPAY ==
[2025-01-25 09:06] VITALS: BMI 34.8
--- NOTE | 2025-01-25 09:07 | PC.NURSE ---
Report to the Outpatient Waiting Room, entrance under the green pavilion located off [facility], at time ___06____ on date ___02/05/25____. Planned Procedure Time: ____814____.? Time changes happen often and if your time is changed the preop area will call you the afternoon before. - You and your visitor will be asked to self-screen and do not enter if you have any COVID symptoms. Please call surgeon if you need to reschedule. - A mask is optional within the hospital at this time. Patients may have clear liquids (water, carbonated beverages, clear teas, apple juice) until 3 hours prior to surgery with a maximum of 20 ounces. - No food from midnight until time of surgery and no smoking, or chewing tobacco (or any form of nicotine). No chewing gum, candy or mints. Take only the following medications with a SIP of water on the morning of surgery: NONE DO NOT STOP ANY OF YOUR OTHER PRESCRIPTION MEDICATIONS PRIOR TO SURGERY EXCEPT THE FOLLOWING Hold all vitamins and supplements for 3 days per anesthesiologist. Please no make-up, nail chilean, hairspray, perfume, deodorant, or body powder the day of surgery.? No jewelry (including any body piercings) or valuables the day of surgery, leave them at home.? Please take a shower or bath the night before, or the morning of, surgery with an antibacterial soap.? Wear comfortable, loose fitting clothing.? Children are encouraged to wear pajamas. - Jewelry must be removed prior to entering the operating room.? Rings and piercings that are not removed may be cut off. - The hospital will not accept responsibility for valuables.? - Please leave all valuables, including medications, at home the day of surgery. If you are going home after surgery, a licensed sales warehouse driver must drive you home.? - NO public transportation without another adult if you receive anesthesia. - We recommend that an adult stay with you for 24 hours following discharge. - We also recommend that you do not drive, make important decision, drink alcoholic beverages, or take any drugs that were not prescribed by your health care provider for at least 24 hours after your discharge time. Follow any additional instructions given to you from your surgeon. Telephone instructions given to Cheri and asked if any additional questions and then verbalized understanding. Patient advised to call surgeon office or pre surgery nurse liaison [phone] if any additional questions.
--- OUTSIDE RECORDS SUMMARY | 2025-02-05 00:50 | XMS_ITS | Patient Health Record ---
Author Organization 1 OF Jin yancey [facility] Address [address] [facility] [address] [place] [address] Care Team Providers Care Psych Rn Name Role Phone Enedina Mann Primary Care Provider Gary Denise Unavailable Allergies Allergen (clinical drug ingredient) Drug/Non Drug [...] Problem Status W/U Status Risk Notes Problem [id number] Porokeratosis (Q82.8) Active confirmed Plan Of Treatment No Information Insurance Providers Payer Name Payer Address Payer Phone Subscriber Number Group Number Insured Name Patient Relationship to Insured Coverage Start Date Coverage End Date [facility] [address] [place] [address] [phone] [id number] Alyssia Dinh Self - patient is the insured Medical (General) History Surgical History Surgery Date(Month/Year)
--- OUTSIDE RECORDS SUMMARY | 2025-02-05 00:50 | XMS_ITS | Data Portability ---
Author Organization [facility] Neville BARNARDmanoj Alberts Address [address] [facility] [place] [address] Care Team Providers Care Distillery Manager Name Role Phone EULOGIO COHEN Primary Care Provider Assessment No assessment recorded. Plan of Treatment Reminders Order Date Submit Date Provider Last Modified By Organization Details Last Modified Time Details Appointments ANY 15 2024 03:00P PENELOPE Arteaga Not available Not available Not available Lab CMP, serum or plasma 2023 024 Linea [facility], [address], [address], [place], [address], 07/13/2024 09:44:27 magnesium , serum or plasma 2023 024 Linea [facility], [address], [address], [place], [address], 07/13/2024 09:44:26 BMP, serum or plasma 2023 024 Linea [facility], [address], [address], [place], [address], 05/19/2024 07:24:18 magnesium , serum or plasma 2023 024 Linea [facility], [address], [address], [place], [address], 05/19/2024 07:24:18 BMP, serum or plasma 2023 024 [employer] [facility], [address] [facility]], [address], [place], [address], 07/13/2024 10:29:59 magnesium , serum or plasma 2023 024 wandres [facility], [address], [place], [address], 07/13/2024 10:29:59 Referral None recorded. Procedures callus removal (PROC) 2023 024 wandres Not available 08/14/2024 16:25:00 Surgeries None recorded. Imaging None recorded. Medication Orders phentermi ne 37.5 mg capsule 2024 025 [id number] [facility], [address] [place], [address], 11/14/2024 15:21:23 phentermi ne 37.5 mg capsule 2023 024 [facility] [id number], [address] [place], [address], 08/14/2024 16:29:47 phentermi ne 15 mg capsule 2023 025 [id number], [address] [place], [address], 11/14/2024 15:00:30 furosemid e 20 mg tablet 2023 024 [facility] [address], [address] [place], [address], 07/12/2024 15:27:22 cyclobenz aprine 5 mg tablet 2023 024 [facility] [address], [address] [place], [address], 08/14/2024 16:00:54 prednison e 20 mg tablet 2023 024 [facility] [address], [address] [place], [address], 07/12/2024 14:38:29 furosemid e 20 mg tablet 2023 024 [facility] [address], [address] [place] [address], [address], 05/17/2024 16:24:57 hydrochlo rothiazid e 25 mg tablet 2023 024 [facility] [address] [facility], [address] [place], [address], 07/12/2024 14:37:16 famotidin e 40 mg tablet 2023 024 [facility] [id number] In [facility], [facility] [place], [address], 08/14/2024 16:08:25 Patient TargetsNo targets recorded. Patient Instructions Encounter Date Encounter Id Patient Instructions Last Modified By Organization Details Last Modified Time 12/30/2023 [id number] [facility] healthy lif[facility] y[facility]: care instructions Not available 12/30/2023 15:01:21 05/17/2024 [id number] Alyssia, - Thank y jennifer for your [...] jed 9 Not available 05/17/2024 16:27:11 07/12/2024 [id number] A healthy lifest yle: care instructions Not available 07/12/2024 15:27:19 A healthy lifest yle: care instructions Not available 07/12/2024 15:27:19 Reason for Referral None Reported. Results Created Date Observation Date Name Description Value Unit Range Abnormal Flag Note LastModifiedBy Organization Detail LastModifiedTime 05/17/2005/19/2024 MAGNE SIUM magnesium 2.3 mg/dL 1.5-2. 5 normal Not Available [address], [address], 05/19/2024 07:24:18 05/17/20 24 05/19/2024 BASIC METAB OLIC PANEL glucose 79 mg/dL 65-99 normal Fasti ng refer ence inter filippo Not Available [address], [address], 05/19/2024 07:24:18 05/17/20 24 05/19/2024 BASIC METAB OLIC PANEL urea nitrogen (BUN) 17 mg/dL 7-25 normal Not Available [address], [address], 05/19/2024 07:24:18 05/17/20 24 05/19/2024 BASIC METAB OLIC PANEL creatinine 0.74 mg/dL 0.50-1 .05 normal Not Available [address], [address], 05/19/2024 07:24:18 05/17/20 24 05/19/2024 BASIC METAB OLIC PANEL eGFR 92 mL/mi n/1.7 3m2 > or = 60 normal Not Available [address], [address], 05/19/2024 07:24:18 05/17/20 24 05/19/2024 BASIC METAB OLIC PANEL BUN/creatini ne ratio SEE NOTE: (calc ) 6-22 Not Repor nora: BUN and Creat inine are withi n refer ence range . Not Available [address], [address], 05/19/2024 07:24:18 05/17/20 24 05/19/2024 BASIC METAB OLIC PANEL sodium 140 mmol/ L 135-14 6 normal Not Available [address], [address], 05/19/2024 07:24:18 05/17/20 24 05/19/2024 BASIC METAB OLIC PANEL potassium 3.9 mmol/ L 3.5-5. 3 normal Not Available [address], [address], 05/19/2024 07:24:18 05/17/20 24 05/19/2024 BASIC METAB OLIC PANEL chloride 102 mmol/ L 98-110 normal Not Available [address], [address], 05/19/2024 07:24:18 05/17/20 24 05/19/2024 BASIC METAB OLIC PANEL carbon dioxide 28 mmol/ L 20-32 normal Not Available [address], [address], 05/19/2024 07:24:18 05/17/20 24 05/19/2024 BASIC METAB OLIC PANEL calcium 9.7 mg/dL 8.6-10 .4 normal Not Available [address], [address], 05/19/2024 07:24:18 07/12/2007/13/2024 MAGNE SIUM magnesium 2.1 mg/dL 1.5-2. 5 normal Not Available [address], [address], 07/13/2024 09:44:26 07/12/20 24 07/13/2024 COMPR EHENS KOBY METAB OLIC PANEL glucose 83 mg/dL 65-99 normal Fasti ng refer ence inter filippo Not Available [address], [address], 07/13/2024 09:44:27 07/12/20 24 07/13/2024 COMPR EHENS KOBY METAB OLIC PANEL urea nitrogen (BUN) 13 mg/dL 7-25 normal Not Available [address], [address], 07/13/2024 09:44:27 07/12/20 24 07/13/2024 COMPR EHENS KOBY METAB OLIC PANEL creatinine 0.78 mg/dL 0.50-1 .05 normal Not Available [address], [address], 07/13/2024 09:44:27 07/12/20 24 07/13/2024 COMPR EHENS KOBY METAB OLIC PANEL eGFR 86 mL/mi n/1.7 3m2 > or = 60 normal Not Available [address], [address], 07/13/2024 09:44:27 07/12/20 24 07/13/2024 COMPR EHENS KOBY METAB OLIC PANEL BUN/creatini ne ratio SEE NOTE: (calc ) 6-22 Not Repor nora: BUN and Creat inine are withi n refer ence range . Not Available [address], [address], 07/13/2024 09:44:27 07/12/20 24 07/13/2024 COMPR EHENS KOBY METAB OLIC PANEL sodium 140 mmol/ L 135-14 6 normal Not Available [address], [address], 07/13/2024 09:44:27 07/12/20 24 07/13/2024 COMPR EHENS KOBY METAB OLIC PANEL potassium 4.4 mmol/ L 3.5-5. 3 normal Not Available [address], [address], 07/13/2024 09:44:27 07/12/20 24 07/13/2024 COMPR EHENS KOBY METAB OLIC PANEL chloride 103 mmol/ L 98-110 normal Not Available [address], [address], 07/13/2024 09:44:27 07/12/20 24 07/13/2024 COMPR EHENS KOBY METAB OLIC PANEL carbon dioxide 27 mmol/ L 20-32 normal Not Available [address], [address], 07/13/2024 09:44:27 07/12/20 24 07/13/2024 COMPR EHENS KOBY METAB OLIC PANEL calcium 9.4 mg/dL 8.6-10 .4 normal Not Available [address], [address], 07/13/2024 09:44:27 07/12/20 24 07/13/2024 COMPR EHENS KOBY METAB OLIC PANEL protein, total 7.2 g/dL 6.1-8. 1 normal Not Available [address], [address], 07/13/2024 09:44:27 07/12/20 24 07/13/2024 COMPR EHENS KOBY METAB OLIC PANEL albumin 4.3 g/dL 3.6-5. 1 normal Not Available [address], [address], 07/13/2024 09:44:27 07/12/20 24 07/13/2024 COMPR EHENS KOBY METAB OLIC PANEL globulin 2.9 g/dL_ (calc ) 1.9-3. 7 normal Not Available [address], [address], 07/13/2024 09:44:27 07/12/20 24 07/13/2024 COMPR EHENS KOBY METAB OLIC PANEL albumin/glob ulin ratio 1.5 (calc ) 1.0-2. 5 normal Not Available [address], [address], 07/13/2024 09:44:27 07/12/20 24 07/13/2024 COMPR EHENS KOBY METAB OLIC PANEL bilirubin, total 0.5 mg/dL 0.2-1. 2 normal Not Available [address] [address] [place], [address], 07/13/2024 09:44:27 07/12/20 24 07/13/2024 COMPR EHENS KOBY METAB OLIC PANEL alkaline phosphatase 90 U/L 37-153 normal Not Available [address] [address] [place], [address], 07/13/2024 09:44:27 07/12/20 24 07/13/2024 COMPR EHENS KOBY METAB OLIC PANEL AST 28 U/L 10-35 normal Not Available [address] [address] [place], [address], 07/13/2024 09:44:27 07/12/20 24 07/13/2024 COMPR EHENS KOBY METAB OLIC PANEL ALT 46 U/L 6-29 high Not Available [address] [address] [address] , [place], [address], 07/13/2024 09:44:27 01/11/20 24 01/11/2024 DEXA No observ ation record ed. [address], [address], 01/14/2024 16:16:17 01/12/20 25 01/11/2025 MAMMO , scree brandon, tomos ynthe sis, bilat eral No observ ation record ed. [address], [address], 01/19/2025 14:32:19 Result Notes None recorded. 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 2023 Simon Bell MD Attn: Accounting ,[address] [facility], [place], [address] , [place] [facility] 4 16:18:52 Bilatera l lower leg edema 730611464 Active 2023 Simon Bell MD Attn: Accounting ,[address] [facility], [place], [address] , [facility] - [facility] 4 16:20:59 Cramp in lower limb 129716602 Active 2023 Simon Bell MD Attn: Accounting ,[address] [facility], [place], [address] , [facility] - [facility] 4 16:32:18 Acute upper respirat ory infectio n of multiple sites Completed 201412/29/2014 Location : None;Sev erity: Moderate ;Progres s: Stable;A dded By: Mikki Chavira;Add to Current Problems : YES Not Available [facility] 7 08:21:13 Pain in limb 51687239 Completed 201212/10/2016 Location : None;Sev erity: Moderate ;Progres s: Stable;A dded By: Emerald Ley i;A dd to Current Problems : NO PENELOPE Liao Attn: Accounting ,[address] [facility], [place], [address] , [place] - [facility] 7 16:26:06 Heartbur n [id number] Completed 201210/12/2013 Location : None;Sev erity: Moderate ;Progres s: Stable;A dded By: Emerald Ley i;A dd to Current Problems : NO Not Available [facility] 7 08:21:13 Low back pain 006358505 Active 2012 Location : None;Sev erity: Moderate ;Progres s: Stable;A dded By: Emerald Ley i;Shanda dd to Current Problems : NO Not Available [facility] 7 08:21:13 Shoulder joint pain 383906132 Completed 201511/16/2015 Location : None;Sev erity: Moderate ;Progres s: Stable;A dded By: Emerald Ley i;Shanda dd to Current Problems : YES Not Available [facility] 7 08:21:13 Pain of hip region 81211968 Active 2015 Location : None;Sev erity: Moderate ;Progres s: Stable;A dded By: Emerald Ley i;Shanda dd to Current Problems : NO Not Available [facility] 7 08:21:13 Gastroes ophageal reflux disease 316678962 Active 2014 Location : None;Sev erity: Moderate ;Progres s: Stable;A dded By: Emerald Ley i;A dd to Current Problems : YES Not Available [facility] 7 08:21:13 Problem Notes None recorded. Procedures Surgical History Date Name Laterality Status Provider Name and Address Organization Details Recorded Time 11/25/19 24 Date of Last Pap Smear completed Dora Peña [place] 12/30/2023 14:31:04 01/06/20 23 Date of Last Mammogram completed Dora Peña [place] 12/30/2023 14:30:28 08/17/20 19 Joint Injection completed PENELOPE Liao Attn: Accounting,[address] [place], [address], [place] [facility] 08/20/2019 22:14:06 Dilation and Curettage completed Sophie Flores MA [place] [facility] 12/10/2016 16:12:49 oophorectomy completed PENELOPE Liao Attn: Accounting,[address] [place] [address], [address], [place] [facility] 10/18/2019 14:27:09 Imaging Results Imaging Date Name Status LastModified by [facility] Details LastModified Time 01/11/2024 DEXA completed [address] [place], [address], 01/14/2024 16:16:17 01/11/2025 MAMMO, screening, tomosynthesis, bilateral completed [facility] [address] [place], [address], 01/19/2025 14:32:19 Procedure Notes None recorded. Medical Equipment None Reported. Allergies Allergen ID Allergen Name Allergen Category Reaction Reaction Severity Criticality Documentation Date Start Date Code Code System Note Provider Name and Address Organization Details Recorded Time 68561 propoxyph zelda napsylate medicatio n Not available [...] 1 tab po qam x 4 days 07/12 completed Not Available Not Available Not [...] MG TOTAL) BY MOUTH SEE ADMINISTR KEY FELDERI ONS. FOLLOW PACKAGE DIRECTION S 05/18 completed [...] Updated DateTime 4 167.64 cm 39.8 kg/m2 632723. 82 g 96 % 96 % 78 /min 98.1 [degF] Dora Peña MA [facility] 4 14:27:16 Date Recorded Systolic blood pressure Diastolic blood pressure Provider Name and Address Organization Details Last Updated DateTime 12/30/2023 134 mm[Hg] 84 mm[Hg] PENELOPE Liao Attn: Accounting,[address] [place], [address], [place] - [facility] 12/30/2023 14:54:06 Date Recorded Body height Body mass index (BMI) Body weight Oxygen saturation Oxygen saturation in Arterial blood by Pulse oximetry Heart rate Body temperature Systolic blood pressure Diastolic blood pressure Provider Name and Address Organization Details Last Updated DateTime 4 167.64 cm 39.7 kg/m2 087260. 12 g 96 % 96 % 81 /min 97.5 [degF] 148 mm[Hg] 81 mm[Hg] Dora Peña MA [facility] 4 15:30:11 Date Recorded Body height Body mass index (BMI) Body weight Body temperature Oxygen saturation Oxygen saturation in Arterial blood by Pulse oximetry Heart rate Systolic blood pressure Diastolic blood pressure Provider Name and Address Organization Details Last Updated DateTime 4 167.64 cm 40.2 kg/m2 122936. 9 g 97.8 [degF] 96 % 96 % 75 /min 126 mm[Hg] 84 mm[Hg] Amaya Loza MA [facility] 4 14:41:25 Date Recorded Body height Body mass index (BMI) Body weight Body temperature Oxygen saturation Oxygen saturation in Arterial blood by Pulse oximetry Heart rate Systolic blood pressure Diastolic blood pressure Provider Name and Address Organization Details Last Updated DateTime 4 167.64 cm 39.5 kg/m2 065759. 13 g 97.2 [degF] 97 % 97 % 83 /min 129 mm[Hg] 84 mm[Hg] Krysta Alexis MA [facility] 4 15:04:10 Date Recorded Body height Body mass index (BMI) Body weight Oxygen saturation Oxygen saturation in Arterial blood by Pulse oximetry Heart rate Body temperature Provider Name and Address Organization Details Last Updated DateTime 5 167.64 cm 37.5 kg/m2 889751. 83 g 96 % 96 % 95 /min 98.2 [degF] Dora Peña MA [facility] 5 14:58:36 Date Recorded Systolic blood pressure Diastolic blood pressure Provider Name and Address Organization Details Last Updated DateTime 11/14/2024 126 mm[Hg] 89 mm[Hg] PENELOPE Liao Attn: Accounting,[address] [place], [address], [facility] 11/14/2024 15:19:58 Social History Question Answer Notes LastModified by Organizat ion Details LastModified Time Tobacco Smoking Status Never Smoker Sophie Flores MA null, [facility] 12/10/2016 16:18:03 Do You Have An Advance Directive? No [email or web address] Information n ot available 04/16/2021 What Is Your Level Of Alcohol Consumption? Moderate [email or web address] Information not available 04/16/2021 Are You Blind Or Do You Have Difficulty Seeing? No [email or web address] Information n ot available 04/16/2021 What Is Your Level Of Caffeine Consumption? Moderate [email or web address] Information not available 04/16/2021 In The 14 Days Before Symptom Onset, Have You Had Close Contact With A Laboratory-confirm ed COVID-19 While That Case Was Ill? No [email or web address] Information n ot available 04/16/2021 In The 14 Days Before Symptom Onset, Have You Had Close Contact With A Person Who Is Under Investigation For COVID-19 While That Person Was Ill? No [email or web address] Information not available 04/16/2021 Have You Been To An Area Known To Be High Risk For COVID-19? No [email or web address] Information not available 04/16/2021 Are You Currently Employed? Yes [email or web address] Information not available 04/16/2021 Are You Deaf Or Do You Have Serious Difficulty Hearing? No [email or web address] Information not available 04/16/2021 What Type Of Diet Are You Following? REGULAR [email or web address] Information n ot available 04/16/2021 What Was The Date Of Your Most Recent Tobacco Screening? 11/14/2024 Information not available 11/14/2024 What Is Your Relationship Status? [email or web address] Information not available 04/16/2021 Do You Use Your Seat Belt Or Car Seat Routinely? Yes [email or web address] Information not available 04/16/2021 Do You Have Smoke And Carbon Monoxide Detectors In Your Home? Yes [email or web address] Information not available 04/16/2021 Are You Passively Exposed To Smoke? No [email or web address] Information no t available 04/16/2021 Do You Feel Stressed (tense, Restless, Nervous, Or Anxious, Or Unable To Sleep At Night)? [id number] [email or web address] Information not available 04/16/2021 Do You Use Any Illicit Or Recreational Drugs? No [email or web address] Information not available 04/16/2021 Sex: Female Functional Status Question Answer Note LastModified by Organizat ion Details LastModified Time Are you able to care for yourself? Yes Information not available 04/16/2021 What is your exercise level? Occasional Information not available 12/30/2023 Mental Status None recorded. Family History Relationship Description Onset Age of this Age Resolved Age Notes LastModified by Organization Details LastModified Time Mother Malignant tumor of breast [email or web address] Not available 2016 16:13:09 Mother Malignant neoplasm of ovary [email or web address] Not available 2016 16:13:57 Father Diabetes mellitus [email or web address] Not available 2016 16:13:23 Father Hypertensive disorder [email or web address] Not available 2016 16:13:40 Medical History Condition Response Acid Reflux (GERD) Y Gynecological History Statement/Question Response Menses Monthly N Date of Last Pap Smear 11/25/2023 Date of Last Mammogram 01/05/2023 Obstetrics History GPAL:G 0 P 0 0 0 0 Immunizations Vaccine Type Date Status Note Provider Steve arauz and Address Organization Details Recorded Time Influenza, split virus, quadrivalent, preservative 9 completed Not Available [facility] 12/23/2022 21:42:19 COVID-19, mRNA, LNP-S, PF, 30 mcg/0.3 mL dose 1 completed PENELOPE Liao Attn: Accounting,[address] [place], [address], [place] [facility] 12/30/2023 15:08:13 COVID-19, mRNA, LNP-S, PF, 30 mcg/0.3 mL dose 2 completed PENELOPE Liao Attn: Accounting,[address] [place], [address], [place] [facility] 12/30/2023 15:08:13 COVID-19, mRNA, LNP-S, PF, 30 mcg/0.3 mL dose 1 completed PENELOPE Liao Attn: Accounting,[address] [place], [address], [place] [facility] 12/30/2023 15:08:13 Tdap 9 completed Not Available [facility] 12/23/2022 21:42:19 Past Encounters Encounter ID Performer Location Encounter Start Date Encounter Closed Date Diagnosis/Indication Diagnosis SNOMED-CT Code Diagnosis ICD10 Code Diagnosis Note [id number] PENELOPE Liao [facility] [address] [place] [address] 12/10/2016 15:58:16 12/11/2016 11:08:52 Nonulcer dyspepsia 7476101 K30 Pain in left arm 5846097 00 M79.644 [id number] Cristela Payton [facility] [address] [place] [address] 12/31/2016 16:04:10 01/02/2017 12:52:48 Pain in left knee 4066984716 90556 M25.562 if patient calls back get knee Xray Elevated blood-pressure reading without diagnosis of hypertension 719420975 R03.0 [id number] Cristela Payton [facility] [address] [place] [address] 01/20/2017 16:08:58 01/21/2017 10:03:12 Solar erythema 231721991 L57.8 Edema of foot 126344983 R60.0 [id number] Eulogio Cohen MD [facility] [address] [place] [address] 09/28/2017 14:00:41 09/28/2017 17:14:10 Malaise and fatigue 361522255 R53.81 Influenza 3820522 J11.1 [id number] Eulogio Cohen MD [facility] [address] [place] [address] 01/19/2018 16:45:58 01/20/2018 16:12:45 Nonulcer dyspepsia 6084482 K30 Tinea pedis 1711386 B35. 3 Inguinal pain 782722839 R10.2 [id number] Eulogio Cohen MD [facility] [address] [place] [address] 10/25/2018 16:09:03 10/26/2018 09:09:12 Acute bronchitis 82596103 J20.9 [id number] PENELOPE Liao [facility] [address] [place] [address] 01/23/2019 14:23:41 01/24/2019 08:51:54 Acute tonsillitis 45966974 J03.90 CONTAGION discussed, may take tylenol and or aleve prn, fluids, rest, no work today or tomorrow [id number] PENELOPE Liao [facility] [address] [place] [address] 08/17/2019 11:03:06 08/18/2019 10:02:25 Trochanteric bursitis of right hip 8901936473 83796 M70.61 [id number] PENELOPE Liao [facility] [address] [place] [address] 09/11/2019 14:19:05 09/12/2019 08:41:04 Pain of hip region 78246928 M25.[address] 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 Keep qtips out of her ear and keep as dry as possible Tenderness of scalp 7585 1004 R51 We discussed at length the signs of shingles. She will be on the lookout for a rash on the distributi on of her scalp sensitivit y, and if occurs, she will take a picture for her chart and will start the antiviral immediatel y. [id number] Kori Orozco LPN [facility] [address] [place] [address] 03/03/2021 15:32:09 03/04/2021 10:11:39 Increased frequency of urination 680151385 R35.0 Dysuria-fr equency syndrome 3896857 R35.0 [id number] PENELOPE Liao [facility] [address] [facility] [address] [place] [address] 04/16/2021 10:28:38 04/22/2021 16:56:36 Hyperlipidemia screening 665045995 Z13.220 Family his tory of diabetes mellitus 608949902 Z83.3 Trochanter ic bursitis of left hip 7872594785 08905 M70.62 if no better with injection, will get xrays done Pain of hip region 15215 002 M25.[address] Julio, had similar symptoms years ago diagnosed as sciatica, and had injections and did very well for several years [id number] PENELOPE Liao [facility] [address] [facility] [address] [place] [address] 07/24/2021 10:17:47 07/25/2021 12:58:16 Sebaceous cyst of skin 501481957 L72.3 will try prn antibiotic for recurrence and if no help or recurrence frequency continues, she will call for an excision. Left side sciatica 82728 24026 75091 M54.32 recurrent with know degenerati ve disc issues, treated 10 years ago by interventi onal epidural injection per dr. Julio. Low back pain 134646057 M54.[address] Julio pending MRI, she is loyda Nelson on of lumbar intervertebral disc 45654654 M51.36 [id number] PENELOPE Liao [facility] [address] [facility] [address] [place] [address] 05/18/2022 14:38:42 05/19/2022 10:44:07 Vasculitis of the skin 79290859 L95.9 will add prednisone pending resolution of rash like before and labs. Had milder case just the left in March and resolved spontaneou sly in 3 days. Will be in touch when lab results are in Dependent edema [id number] 4 R60.0 salt avoidance, keep legs elevated and compressed , heat avoidance, await labs. [id number] PENELOPE Liao [facility] [address] [address] 12/30/2023 14:16:52 12/31/2023 13:53:12 Adult health examination [id number] Z00.[address] Landin web editor for paps, having mammogram next Wednesday, bone density upcoming. Declines tetanus, states had one before her 8 year old granddaelda hancock was born, no record. Morbid obesity 096691020 E66.01 lowfat diet, weight loss stressed, needs to walk more, move more. Hypertriglyceridemia 302 994342 E78.1 lowfat diet, weight loss stressed, limit alcohol and tylenol. Liver enzy mes level above reference range 136592523 R74.01 lowfat diet, weight loss stressed, limit alcohol and tylenol. Gastroesop hageal reflux disease without esophagitis 058724608 K21.9 had EGD with zero issues. avoid acidic foods, greasy and fried foods, caffeine, late meals, and elevate the head of the bed, start nightly famotidine and TUMS for breakthrou gh symptoms, and call if no better. Weight loss stressed Peripheral edema 5078649 00 R60.9 salt avoidance, support hose, MOVE MORE, elevate legs in the evening, will start daily or prn hctz. Labs reviewed, normal renal function. No SOB or CP. 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 handoutche ck labslow [facility] eroidal anti-infla mmatory drugsoral corticoste roids, skeletal muscle relaxant if needed Bilateral lower leg edema 646611728 R60.0 hydrochlor othiazide seems inadequate getting toe cramps Long-term drug therapy 382317962 Z79.899 check routine labs for toe cramping Cramp in lower limb 5329 97763 R25.2 on diureticch hansa lytes, incl magnesiumt rial use of over-the-c ounter magnesium [id number] PENELOPE Liao [facility] [address] [place] [address] [place] [address] 07/12/2024 14:14:21 07/19/2024 16:14:59 Cramp in lower limb 383463103 R25.2 taking magnesium and really helping. Bilateral lower leg edema 932534979 R60.0 No signs or symptoms of CHF, renal function normal, likely from her obesity and venous insufficie ncy. lasix is not getting full relief at all, will allow for 2 per day prn, but support hose really needed on the regular, she understand s. thyroid normal in Nov per web editor, lipids show >300 trigs. Elevated LFT. Not fasting today, discussed need for weight loss, no alcohol, no tylenol. Varicose v eins of lower extremity 81201785 I83.93 I83.893 SUPPORT HOSE DAILY. Hypertriglyceridemia 302 556670 E78.1 lowfat diet, weight loss stressed, limit alcohol and tylenol. Start daily fishoil/om ega-3 will check fasting lipids with next blood draw. Morbid obesity 778734952 E66.01 lowfat diet, weight loss stressed, needs to walk more, move more. Discussed options for augmented weight loss, and she'd like to try phentermin e, will f/u in one month to see if increased dose indicated and vitals normal [id number] PENELOPE Liao [facility] [address] [place] [address] 08/14/2024 14:45:49 08/15/2024 11:30:14 Morbid obesity 968435016 E66.01 low fat diet, weight loss stressed, needs to walk more, move more. Discussed options for augmented weight loss, and she'd like to continue phentermin e, will increase dose and will f/u in three months, she will call with any issues in the mean time. Foot callus 767599343 L8 4 total relief of previous symptoms, she will use lotion to keep skin soft, and use safe callus shaver in the future [id number] PENELOPE Liao [facility] [address] [place] [address] 11/14/2024 14:44:55 11/15/2024 09:54:58 Morbid obesity 804065736 E66.01 low fat diet, weight loss stressed, [...] Elevated blood-pressure reading without diagnosis of hypertension 870400280 R03.0 borderline today, hopefully with continued weight [...] [place] [address] [id number] Alyssiagina Dinh 05/17/2024 1 [place] [address] Fabrizio [id number] Alyssia Dinh 07/12/2024 1 [place] [address] [id number] Alyssia Dinh 08/14/2024 1 [place] [address] [id number] Alyssia Dinh 11/14/2024 1 [place] [address] [id number] Alyssia Dinh Notes Date Note Type Note Provider [...] All other systems reviewed and negative. - Brand Advocate/Nursing note reviewed. - Simon Bell MD Attn: Accounting, [address] [facility], [place], [address], [facility] 05/17/2024 16:33:32 07/12/2024 text/html EdemaReported bypatient.Quality:leg s [...] much difference. PENELOPE Liao Attn: Accounting, [address] [place], [address], [facility] 07/13/2024 11:26:55 08/14/2024 text/html ObesityReported bypatient.Context:no inhaled [...] a cut. PENELOPE Liao Attn: Accounting, [address] [facility], [place], [address], [facility] 08/14/2024 22:58:46 11/14/2024 text/html ObesityReported bypatient.Context:no inhaled [...] or tachycardia PENELOPE Liao Attn: Accounting,[address] [place], [address], [facility] 11/14/2024 15:23:02 OBGyn Episode No OBEpisode recorded.
--- OUTSIDE RECORDS SUMMARY | 2025-02-05 00:50 | XMS_ITS | Clinical Summary ---
Author Organization [facility] Address [facility] [place] [address] Care Team Providers Care Teacher Cclc Name Role Phone ParentEnedina Primary Care Provider [phone] Allergies Active Allergy Reactions Criticality Noted Date Comments Propoxyphene Nausea Only 10/30/2021 Medications Cholecalciferol ([employer] VITAMIN D3) 250 MCG (56753 UT) Cap Take 1 capsule by mouth [...] 109.8 kg (242 lb) 12/09/2022 2:14 PM SIGNWRITER Height 168.9 cm (5' 6.5 ) 12/09/2022 2:14 PM SIGNWRITER Body Mass Index 38.47 12/09/2022 2:14 PM SIGNWRITER Plan of Treatment Health Maintenance Due Date [...] Most Recently Relevant to Health Maintenance Insurance [place] [employer] Care Teams Teacher Cclc Relationship Specialty Start Date End Date Parent, PENELOPE Mcconnell [address] [place] [address] PCP - General FAMILY PRACTICE 02/24/22
--- OUTSIDE RECORDS SUMMARY | 2025-02-05 00:51 | XMS_ITS | Referral Summary ---
Author Organization [facility] [place] Address [address] [place] [address] Care Team Providers Care Automotive Parts Counterperson Name Role Phone Parent, Enedina NEGRETE Primary Care Provider [phone] Flori Landin MD Unavailable [phone] Encounters Date Type Department Care Team Description 01/11/2025 2:06 PM CDT - 01/11/2025 11:59 PM CDT Hospital Encounter [facility] Breast Imaging [address] [place] [phone] Encounter for screening mammogram for malignant neoplasm of breast Discharge Disposition: Discharge to home or self care 12/05/2024 5:08 PM PHYSICAL SECURITY ENGINEER - 12/05/2024 11:59 PM PHYSICAL SECURITY ENGINEER Hospital Encounter [facility] Ultrasound [address] [place] [address] Pelvic and perineal pain Discharge Disposition: Discharge to home or self care from Last 3 Months Allergies No known active allergies Social History Tobacco Use Types Packs/Day Years Used Date Smoking Tobacco: Never Assessed Comments No Sex and Gender Information Value Date Recorded Sex Assigned at Not on file Legal Sex Female 2:48 AM PHYSICAL SECURITY ENGINEER Gender Identity Not on file Sexual Orientation Not on file Plan of Treatment Not on file Procedures Procedure Name Priority Date/Time Associated Diagnosis Comments SCREENING MAMMOGRAM BILATERAL W SUKHDEV Schedule Routine, Read Routine (OP Routine) 01/11/2025 2:25 PM CDT Encounter for screening mammogram for malignant neoplasm of breast US PELVIS W ENDOVAGINAL Schedule Routine, Read Routine (OP Routine) 12/05/2024 5:52 PM PHYSICAL SECURITY ENGINEER Pelvic and perineal pain from Last 3 [...] age 42, based on guidelines of the [employer] (ACR Practice Parameter for the Performance of Screening and Diagnostic Mammography) and [place]. For women [...] US Pelvis W Endovaginal (12/05/2024 5:52 PM PHYSICAL SECURITY ENGINEER) Anatomical Region Laterality Modality Pelvis N/A Ultrasound 12/09/2024 3:23 PM PHYSICAL SECURITY ENGINEER Narrative 12/09/2024 3:25 PM PHYSICAL SECURITY ENGINEER EXAM DESCRIPTION: US PELVIS W ENDOVAGINAL REASON [...] this was not specifically measured by the hydro pneumatic tester. On retrospective review this is estimated at [...] Brian Davis M.D. CH: GREGG Report ID: [id number] Reading Location: [id number] Procedure Note Brian Davis Jr., MD - [...] this was not specifically measured by the hydro pneumatic tester. On retrospective review this is estimated at [...] Brian Davis M.D. CH: GREGG Report ID: [id number] Reading Location: [place] [address] Serena Wadsworth NP [facility] PROCEDU RES Final Result from Last 3 Months Insurance [facility] FEDERAL Member Subscriber Plan / Payer (Ef fective 2018-Present) Name:Alyssia Dinh Relation to Subscriber:Spouse Name:Herson Dinh Date of :1963 Address: [address] [place] [address] Payer ID:[id number] (NAIC) Group ID:[id number] Type:PRAKASH CUMMINGS Address: [address] [place] [id number] Care Teams Automotive Parts Counterperson Relationship Specialty Start Date End Date Enedina Roberts PA PCP - General 09/11/19 Flori Landin MD [address] [id number] Referring Physician Gynecology 01/04/23
--- OUTSIDE RECORDS SUMMARY | 2025-02-05 00:51 | XMS_ITS | Clinical Summary ---
Author Organization [facility] [place] Address [address] [place] [address] Care Team Providers Care Securities Lending Trader Name Role Phone Parent, Enedina NEGRETE Primary Care Provider [phone] Flori Landin MD Unavailable Allergies No known active allergies Encounters Date Type Department Care Team Description 01/11/2025 2:06 PM CDT - 01/11/2025 11:59 PM CDT Hospital Encounter [facility] Breast Imaging [address] [place] [phone] Encounter for screening mammogram for malignant neoplasm of breast Discharge Disposition: Discharge to home or self care 12/05/2024 5:08 PM VOIP TECHNICIAN - 12/05/2024 11:59 PM VOIP TECHNICIAN Hospital Encounter [facility] Ultrasound [address] [place] [address] Pelvic and perineal pain Discharge Disposition: Discharge [...] on file Legal Sex Female 2:48 AM VOIP TECHNICIAN Gender Identity Not on file Sexual Orientation [...] Read Routine (OP Routine) 12/05/2024 5:52 PM VOIP TECHNICIAN Pelvic and perineal pain from Last 3 [...] age 42, based on guidelines of the [place] [employer] (ACR Practice Parameter for the Performance of Screening and Diagnostic Mammography) and [place] [employer]nec[employer]. For women [...] been no suspicious change. Serena Wadsworth NP [facility] MAMMO PROC EDURES Final Result * US Pelvis W Endovaginal (12/05/2024 5:52 PM VOIP TECHNICIAN) Anatomical Region Laterality Modality Pelvis N/A Ultrasound 12/09/2024 3:23 PM VOIP TECHNICIAN Narrative 12/09/2024 3:25 PM VOIP TECHNICIAN EXAM DESCRIPTION: US PELVIS W ENDOVAGINAL REASON [...] this was not specifically measured by the chief order dispatcher. On retrospective review this is estimated at [...] Brian Davis M.D. CH: GREGG Report ID: [id number] Reading Location: [id number] Procedure Note Brian Davis Jr., MD - [...] this was not specifically measured by the chief order dispatcher. On retrospective review this is estimated at [...] by Brian Davis M.D. CH: Report ID: [id number] Reading Location: [id number] us Serena Wadsworth ACTING TEACHER IMG US PROCEDU RES Final Result from Last 3 Months Insurance [facility] FEDERAL Member Subscriber Plan / Payer (Ef fective 2018-Present) Name:Alyssia Dinh Relation to Subscriber:Spouse Name:Fabrizio Herson Jimenez Date of :1963 Address: [address] [place] [address] Payer ID:[id number] (NAIC) Group ID:[id number] Type:[facility] Address: [facility] [id number] [place] [id number] Care Teams Securities Lending Trader Relationship Specialty Start Date End Date Enedina Roberts PA PCP - General 09/11/19 Flori Landin MD [address] [address] Referring Physician Gynecology 01/04/23
[2025-02-05 06:27] VITALS: BP 134/79; PULSE 76; RESP 16; TEMP 36.6; O2SAT 99
[2025-02-05] MEDS: LACTATED RINGERS 1,000 ML 30 ML IV CONT (06:40)
[2025-02-05] MEDS: ACETAMINOPHEN 500 MG TABLET 1000 MG PO (06:42)
--- NOTE | 2025-02-05 07:13 | P.PNAN_ITS ---
Anes - Initial Pre Proc Eval Procedure: Operation Date: 02/05/25 08:15 Proposed Procedures p Hysteroscopy Dilation and Curettage - Flori Landin MD Date/Time: 02/05/25 07:13 Surgeon: Flori Landin MD Pre Op Diagnosis: Thickened Endometrium Patient Data Age: 64 Gender: F Height: 1.7 m Weight: 100 kg Last Vital Signs Temp 36.6 C 02/05/25 06:27 Pulse 76 02/05/25 06:27 Resp 16 02/05/25 06:27 BP 134/79 02/05/25 06:27 Pulse Ox 99 02/05/25 06:27 O2 Del Method Room Air 02/05/25 06:27 Allergies Allergy/AdvReac Type Severity Reaction Status Date / Time propoxyphene (From Darvon) AdvReac Nausea and Verified 02/05/25 06:52 Vomiting Home Medications ?Medication ?Instructions ?Recorded ?Confirmed ?Type furosemide 20 mg tablet 20 mg PO DAILY 01/25/25 02/05/25 History krill oil 500 mg capsule 500 mg PO DAILY 01/25/25 02/05/25 History phentermine 15 mg capsule 15 mg PO DAILY 01/25/25 02/05/25 History Patient hx anesthesia problems: none Family hx anesthesia problems: none Results Review: All pre-operative results and documents have been reviewed as part of the pre- operative evaluation. [facility] Past Medical History Medical History (Updated 04/12/23 @ 07:46 by Stone Juarez DO) Basal cell carcinoma (normal spontaneous vaginal delivery) GERD (gastroesophageal reflux disease) Surgical History Surgical History (Updated 02/05/25 @ 07:23 by Flori Landin MD) History of hysteroscopy 2022 endometrial polyps History of cryosurgery cervical 1990 History of D&C for spontaneous in 1989 History of laparoscopy BSO Social History Social History Smoking status: Never smoker Alcohol intake: current Drinks per week: 4 Substance use: never Substance use type: does not use Living arrangements: with family Spiritual care concerns: No Anes - Eval Final PreProcedure Day of Procedure 02/05/25 07:13 Patient weight: obese Heart: regular rate and rhythm Lungs: clear to auscultation Airway: Mallampati scale class II Neurological: alert and oriented Last oral intake: >/= 8 hours ASA classification: II Emergent: no Anesthetic plan: proceed Anesthesia type and monitoring: general GIVS and standard monitoring Results Review: All pre-operative results and documents have been reviewed as part of the pre- operative evaluation. Informed Consent: The patient's anesthetic plan and its attendant risks and benefits were discussed with the patient/family/POA. Questions were solicited and answers provided to the satisfaction of the patient/family/POA.
--- NOTE | 2025-02-05 07:22 | WPDHPUPDATE1 ---
History and Physical Update Update Date/Time: 02/05/25 07:22 History and Physical has been reviewed, including an updated exam of the patient. There are NO changes in the patient's condition. Risks, benefits, and alternatives have been discussed and questions answered. Patient agrees to proceed with procedure.
--- NOTE | 2025-02-05 07:22 | PM.HPGS ---
History of Present Illness History of Present Illness Consent: Risks, benefits, and alternatives have been discussed and questions answered. Patient agrees to proceed with procedure. Chief complaint: Thickened Endometrium Narrative: Alyssia Dinh is a 64 year old female with a thickened endometrium. Patient with a history endometrial polyps. It was recommended to undergo a hysteroscopy D&C for further evaluation. Risks of infection, bleeding, perforation, and possible pathology are reviewed. Patient voices understanding and agrees to proceed. Review of Systems Review of Systems: not repeated day of surgery; patient states no changes in status [facility] Past Medical History Medical History (Updated 04/12/23 @ 07:46 by Stone Juarez DO) Basal cell carcinoma (normal spontaneous vaginal delivery) GERD (gastroesophageal reflux disease) Surgical History Surgical History (Updated 02/05/25 @ 07:23 by Flori Landin MD) History of hysteroscopy 2022 endometrial polyps History of cryosurgery cervical 1990 History of D&C for spontaneous in 1989 History of laparoscopy BSO Social History Social History Smoking status: Never smoker Alcohol intake: current Drinks per week: 4 Substance use: never Substance use type: does not use Living arrangements: with family Spiritual care concerns: No Meds Home Medications and Allergies Home Medications ?Medication ?Instructions ?Recorded ?Confirmed ?Type furosemide 20 mg tablet 20 mg PO DAILY 01/25/25 02/05/25 History krill oil 500 mg capsule 500 mg PO DAILY 01/25/25 02/05/25 History phentermine 15 mg capsule 15 mg PO DAILY 01/25/25 02/05/25 History Allergies Allergy/AdvReac Type Severity Reaction Status Date / Time propoxyphene (From Darvon) AdvReac Nausea and Verified 02/05/25 06:52 Vomiting Vital Signs Vital Signs - 24 hr 02/05/25 06:27 Temperature 97.8 F Pulse Rate 76 Respiratory Rate 16 Blood Pressure 134/79 Pulse Oximetry 99 Oxygen Delivery Room Air Exam Const: General: healthy appearing and alert Orientation/consciousness: patient oriented x3 Resp: Effort & Inspection: normal respiratory effort Auscultation: clear to auscultation bilaterally Cardio: Rate: regular rate Rhythm: regular rhythm GI: GI Palp: Yes Soft to palpation, No Tenderness to palpation present (GI) and No Palpable mass present : External Female Exam: normal external appearance Speculum Exam - Vagina: normal appearance of the vagina and normal vaginal discharge Speculum Exam - Cervix: normal appearance of the cervix Bimanual exam- vagina & uterus: uterine size normal and consistency normal Bimanual Exam- Adnexa, other: normal adnexae and No adnexal tenderness Neuro: General: patient oriented x3 Assessment and Plan Assessment and plan (1) Thickened endometrium: Code(s): R93.89 - Abnormal findings on diagnostic imaging of other specified body structures Status: Acute Assessment and Plan: Plan to proceed with D&C hysteroscopy
[2025-02-05] MEDS: KETOROLAC 15 MG/ML VIAL (*BKC) IV PUSH (08:22)
--- NOTE | 2025-02-05 08:24 | P.OP_ITS ---
Procedure Note - Detailed Date of Procedure 02/05/25 Pre-op Diagnosis Thickened Endometrium Post-op Diagnosis Same Procedure Performed D&C hysteroscopy Surgeon Flori Landin MD Anesthesia MAC Findings Uterus sounds to 8cm and appears grossly atrophic. Description of Procedure The patient was taken to the operating room and placed under anesthesia in the dorsal lithotomy position. She was prepped and draped in the usual sterile fashion. [place] speculum was placed in the vagina and the cervix grasped on the anterior lip with a tenaculum. The uterus is sounded to 8cm. The hysteroscope was placed and with no abnormalities noted it is removed. The sharp curette is used to curette the endometrium until a good uterine cry was noted in all areas. All instruments are removed. Sponge, needle, and instrument counts are correct per the OR staff. The patient was taken to recovery in stable condition. Estimated Blood Loss 5 Drains No Packing No Pathology Yes (Endometrial curettings) Complications No immediate complications Condition Stable Disposition PACU
[2025-02-05 08:25] VITALS: BP 128/71; PULSE 64; RESP 14; O2SAT 100
[2025-02-05 08:55] VITALS: BP 140/90; PULSE 64; RESP 20
[2025-02-05 09:25] VITALS: BP 128/74; PULSE 70; RESP 20
== END 2025-02-05 09:40 | disposition home or self-care (01) ==
PROVIDERS: PCP Physician Assistant; Visit Provider Obstetrics & Gynecology Gynecology
PROC: 0U5B8ZZ Destruction of Endometrium, Via Natural or Artificial Opening Endoscopic (ICD-10-PCS; CPT 58563; principal; 2025-02-05 08:15)
DX: R93.89 Abnormal findings on diagnostic imaging of other specified body structures (principal); N85.8 Other specified noninflammatory disorders of uterus; K21.9 Gastro-esophageal reflux disease without esophagitis
CPT/HCPCS: 58558; 88305; A9270; J1885; J2003; J2250; J2405; J2704; J3010; J7120